=== PATIENT | female | born 1955 | race Caucasian/White ===

== ENCOUNTER → 2018-06-13 14:00 | Outpatient (CLI) | payer OTHER, SELFPAY | PROVIDERS: Family Provider Family Medicine; PCP Family Medicine | DX: Z23 Encounter for immunization (principal) | CPT/HCPCS: 90471; 90686 ==

== ENCOUNTER → 2019-02-18 10:47 | Outpatient (CLI) | payer OTHER, SELFPAY ==
[2019-02-18 11:38] LABS: Add Manual Diff / Slide Review NO; Basophils Absolute Auto 100 /uL (0-100); Basophils Percent Auto 0.7 % (0-2); Eosinophils Absolute Auto 200 /uL (0-450); Hematocrit 43.3 % (36-46); Hemoglobin 14.6 g/dL (12.0-16.0); Lymphocytes Absolute Auto 2700 /uL (1100-4500); Lymphocytes Percent Auto 27.2 % (25-40); Mean Corpuscular HGB Conc 33.7 % (30-36); Mean Corpuscular Hemoglobin 30.3 PG (26-34); Mean Corpuscular Volume 89.8 fL (80-100); Monocytes Absolute Auto 600 /uL (0-900); Monocytes Percent Auto 6.1 % (3-14); Neutrophils Absolute Auto 6300 /uL (1500-7000); Platelet Count 293 X10^3/uL (150-400); Red Blood Cell Count 4.82 X10^6/uL (4.0-5.2); Red Cell Distribution Width 13.7 % (11.6-14.8); White Blood Cell Count 9.9 X10^3/uL (4.5-11.0)
[2019-02-18 12:04] LABS: Alanine Aminotransferase 19 IU/L (9-52); Albumin 4.1 g/dL (3.5-5.0); Albumin Globulin Ratio 1.6 (1.0-2.8); Alkaline Phosphatase 50 U/L (38-126); Aspartate Aminotransferase 21 IU/L (14-36); BUN Creatinine Ratio 31.4 (6-22); Bilirubin Total 0.8 mg/dL (0.2-1.3); Bilirubin Unconjugated 0.5 mg/dL (0.0-1.1); Blood Urea Nitrogen 22 mg/dL (7-17); Calcium 9.8 mg/dL (8.4-10.2); Carbon Dioxide 29 mmol/L (22-32); Chloride 106 mmol/L (98-107); Estimated Glomerular Filt Rate > 60.0 mL/min (>60); Globulin 2.5 g/dL (1.7-4.1); Glucose 79 mg/dL (80-110); HEMOLYSIS < 15 (0-50); Potassium 4.2 mmol/L (3.4-5.1); Sodium 142 mmol/L (137-145); Total Protein 6.6 g/dL (6.3-8.2)
== END ==
PROVIDERS: Visit Provider Podiatrist
DX: B35.1 Tinea unguium (principal)
CPT/HCPCS: 36415; 80048; 80076; 85025

== ENCOUNTER → 2019-06-11 16:32 | Outpatient (CLI) | payer OTHER, SELFPAY | DX: Z23 Encounter for immunization (principal) | CPT/HCPCS: 90471; 90662 ==

== ENCOUNTER → 2020-03-04 11:06 | Outpatient (CLI) | payer OTHER, SELFPAY | PROVIDERS: Visit Provider Family Medicine | DX: R30.0 Dysuria (principal) | CPT/HCPCS: 87077; 87086; 87186 ==

== ENCOUNTER → 2020-06-11 | Outpatient (CLI) | payer OTHER, SELFPAY | PROVIDERS: Referring Provider Internal Medicine; Visit Provider Internal Medicine | DX: Z23 Encounter for immunization (principal) | CPT/HCPCS: 90471; 90662 ==

== ENCOUNTER → 2020-07-23 13:04 | Outpatient (CLI) | payer OTHER, SELFPAY | PROVIDERS: Referring Provider Family Medicine; Visit Provider Family Medicine | DX: R30.0 Dysuria (principal) | CPT/HCPCS: 87086 ==

== ENCOUNTER → 2020-07-29 08:32 | Outpatient (CLI) | payer OTHER, SELFPAY ==
[2020-07-29 09:39] LABS: COVID19 -Nasal RAPID Negative (Negative)
== END ==
PROVIDERS: PCP Family Medicine; Visit Provider Student in an Organized Health Care Education/Training Program
DX: Z11.59 Encounter for screening for other viral diseases (principal)
CPT/HCPCS: 87635

== ENCOUNTER → 2020-09-09 08:48 | Outpatient (CLI) | payer OTHER, SELFPAY ==
[2020-09-09] MEDS: COVID-19 VACC(MODERNA-1)/PF 100 MCG/0.5 ML VIAL IM (08:51)
== END ==
PROVIDERS: PCP Family Medicine; Visit Provider Internal Medicine
DX: Z23 Encounter for immunization (principal)
CPT/HCPCS: 0011A; 91301

== ENCOUNTER → 2020-10-06 08:39 | Outpatient (CLI) | payer OTHER, SELFPAY ==
[2020-10-06] MEDS: COVID-19 VACC #2, MRNA(MOD) 100 MCG/0.5 ML VIAL IM (08:43)
== END ==
PROVIDERS: PCP Family Medicine; Visit Provider Internal Medicine
DX: Z23 Encounter for immunization (principal)
CPT/HCPCS: 0012A; 91301

== ENCOUNTER → 2021-03-01 15:40 | Outpatient (CLI) | payer OTHER, SELFPAY ==
--- NOTE | 2021-03-01 16:07 | DI.CT.S_ITS ---
PROCEDURE: CT HEAD/BRAIN WO CON INDICATIONS: Cerebral aneurysm, nonruptured TECHNIQUE: Noncontrast 4.5 mm thick angled axial sections acquired from the foramen magnum to the vertex, with coronal and sagittal reformats. For radiation dose reduction, the following was used: automated exposure control, adjustment of mA and/or kV according to patient size. COMPARISON: [facility], CT, CT HEAD WITHOUT CONTRAST, 12/29/2020, 8:52. FINDINGS: Image quality: Significant artifact from previous anterior circulation aneurysmal coiling. CSF spaces: Basal cisterns are patent. No extra-axial fluid collections. The ventricles are symmetric in size and shape. Brain: No intracranial bleeds. Ill-defined low-attenuation focus within the posterior right parietal lobe measuring approximately 2.7 cm. This is new compared to prior exam. There is cerebral volume loss for age, with resultant ventricular and sulcal prominence. There are periventricular and deep white matter chronic small vessel ischemic changes. There is intracranial internal carotid artery atherosclerosis. Skull and face: Calvarium and visualized facial bones appear intact, without suspicious lesions. Sinuses: Visualized sinuses and mastoids are clear. IMPRESSION: 1. Interval aneurysm repair. 2. Low attenuation within the right parietal lobe as above. This is developed since 12/29/2020. This could be secondary to a region of infarction. However, other etiology such as infection, inflammation or less likely neoplasm cannot be excluded. Further evaluation with MRI brain with without contrast is recommended. Dictated by: Sonia Redding M.D. on 03/01/2021 at 16:48 Approved by: Sonia Redding M.D. on 03/01/2021 at 16:49
== END ==
PROVIDERS: Family Provider Family Medicine; PCP Family Medicine; Referring Provider Nurse Practitioner; Visit Provider Nurse Practitioner
DX: I67.1 Cerebral aneurysm, nonruptured (principal); I60.9 Nontraumatic subarachnoid hemorrhage, unspecified
CPT/HCPCS: 70450

== ENCOUNTER 2021-03-04 14:30 | Outpatient (RCR) | payer OTHER, SELFPAY ==
--- NOTE | 2021-02-02 17:51 | PT.OIE ---
Current Diagnoses Nontraumatic subarachnoid hemorrhage, unspecified (02/02/21) Other abnormalities of gait and mobility (02/02/21) Dizziness and giddiness (02/02/21) Visit Care Team Role Provider Type Brad Rodriguez MD Attending Provider Physician Family Provider Primary Care Provider Referring Provider Specialty: Family Practice Address: [address] [place] [address], [id number] Email: [email or web address] Physical Therapy Initial Evaluation PT-OP-A Visit Information Start: 02/02/21 12:55 Freq: Status: Active Protocol: Document 02/02/21 16:45 AW (Rec: 02/02/21 16:49 AW [id number]) Out-Patient Physical Therapy Visit Information Visit Information Visit Type Initial Evaluation Visit Note Pt arrived with her spouse, Everett, who was present throughout this evaluation. 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 She spent three weeks in the ICU and was intubated ~ 1 week during that time. She discharged two weeks ago and has had no therapy. She reports short term memory loss, decreased strength, impaired balance, fatigue, and headaches. She is still off work but plans to return. Prior Treatments and Tests [facility] three weeks in January as noted above Future Testing and Treatments Planned Pt will have follow up head CT at late February. She is scheduled for neuropsych consult with Dr. Meneses later this week. Treatment Goals Patient/Caregiver Goals Improve strength, balance, overall energy level. 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 PT-OP-C Subjective Start: 02/02/21 12:55 Freq: Status: Active Protocol: Document 02/02/21 16:45 AW (Rec: 02/02/21 17:36 AW [email or web address]) OP-PT Subjective Patient Comments Patient Comments My balance just feels a little off since I got home. OP-PT Pain Assessment Pain Assessment Grid Paper Pain Assessment Grid Completed Yes: Scanned to EMR. Pt reports headaches usually not more than 1/10 pain PT-OP-D Balance Start: 02/02/21 12:55 Freq: Status: Active Protocol: Document 02/02/21 16:45 AW (Rec: 02/02/21 17:36 AW [email or web address]) OP-PT Balance Assessment Sitting Balance Static Sitting Balance Ability Normal Dynamic Sitting Balance Ability Normal Standing Balance Static Standing Balance Ability Good Dynamic Standing Balance Ability Good Device Used no AD Balance Tests mCTSIB mCTSIB Position 1 30 mCTSIB Position 2 30 mCTSIB Position 3 30 mCTSIB Position 4 5, 8, 20 Single Limb Standing Single Limb- Right 5 sec Single Limb- Left >15 sec Dumont Fall Scale Copyright Permission PT-OP-G Mobility & Gait Start: 02/02/21 12:55 Freq: Status: Active Protocol: Document 02/02/21 16:45 AW (Rec: 02/02/21 17:36 AW [email or web address]) OP Gait Assessment Gait Gait Assistance Required: Independent Assistive Devices Assistive Device None Gait Deviations General Gait Pattern Within Normal Limits Factors Limiting Gait Function Factors Limiting Gait Function Poor Balance PT-OP-H Neuro Start: 02/02/21 12:55 Freq: Status: Active Protocol: Document 02/02/21 16:45 AW (Rec: 02/02/21 17:36 AW [email or web address]) Sensation Evaluation Gross Sensation Gross Sensation WNL Coordination Evaluation Comments Coordination Comments [id number], rapid pronation/supination, foot tap all WNL Deep Tendon Reflex & Clonus Assessment Deep Tendon Reflex Bilateral Achilles Deep Tendon Reflex 2+ Normal Bilateral Patellar Deep Tendon Reflex 1+ Diminished Bilateral Bicep Deep Tendon Reflex 2+ Normal PT-OP-K Range of Motion Start: 02/02/21 12:55 Freq: Status: Active Protocol: Document 02/02/21 16:45 AW (Rec: 02/02/21 17:36 AW [email or web address]) Hip Goniometric Range of Motion Hip ROM Limitations Comments All B LE ROM WNL PT-OP-M Strength Start: 02/02/21 12:55 Freq: Status: Active Protocol: Document 02/02/21 16:45 AW (Rec: 02/02/21 17:36 AW [email or web address]) Hip Strength Hip Manual Muscle Testing bilateral Flexion (L2) 4+ Good+ Extension (S1) 4+ Good+ Abduction 4+ Good+ Adduction 4+ Good+ External Rotation 4+ Good+ Internal Rotation 4+ Good+ Knee Strength Knee Manual Muscle Testing bilateral Flexion (S2) 4 Good Extension (L3) 4+ Good+ Ankle/Foot Strength Ankle and Foot Manual Muscle Testing bilateral Dorsiflexion (L4) 4+ Good+ Inversion 4+ Good+ Eversion (S1) 4 Good Comments PF tested in standing with pt able to perform single leg heel raised x 12 each side but with poor stability PT-OP-Q Treatments Start: 02/02/21 12:55 Freq: Status: Active Protocol: Document 02/02/21 16:45 AW (Rec: 02/02/21 17:51 AW [email or web address]) Therapeutic Exercises Standing Exercises heel raises Standing Exercise Name heel raises Side bilateral Equipment Used 4 step Reps/Minutes 15 x 3 Comments cued ankle stability, control of inversion; HEP Therapeutic Activity Therapeutic Activity FGA Name FGA Reps/Minutes 10 min Comments Score 23/30. See copy in EMR. Neuro Re-Education Treatment Balance Activities NBOS Details NBOS Surface level Reps/Duration 5 min Comments with head turns and nods; HEP Lymphedema Treatment Other Other Educated pt on evaluation findings and plan of care. Pt was agreeable. Spent time discussing balance systems integration with pt able to teach back with rationale for balance treatment. PT-OP-T Assessment and Plan Start: 02/02/21 12:55 Freq: Status: Active Protocol: Document 02/02/21 16:45 AW (Rec: 02/02/21 17:51 AW [email or web address]) Physical Therapy Assessment Rehab Potential Rehabilitation Potential Good Evaluation Complexity Number of Personal Factors/Comorbidities 1-2 Number of Body Systems Impaired 1-2 Clinical Presentation at Evaluation Stable Impairments Impairments Activity Tolerance,Balance, Gait,Pain,Strength Other Concerns Fall Risk moderate Barriers to Rehabilitation - Pt tends to work non-stop and requries cues/reminders to take breaks. - Short term memory loss. Goals Three Impairment strength Jail Goal (LTG) Pt will improve BLE strength to 4+/5 or greater in all major muscle groups to support safe mobility LTG Duration 2 months - 04/04/21 Two Impairment dynamic balance Short Term Goal (STG) Pt will improve single leg stance bilaterally to 20 seconds with good stability for improved gait quality and safety. STG Duration 4 weeks - 03/02/21 Night Time Nanny Goal (LTG) Pt will improve FGA score from 23/30 to 27/30 to demonstrate reduction in falls risk and alignment with norms for age- matched peers. LTG Duration 2 months - 04/04/21 One Impairment lacks appropriate HEP Short Term Goal (STG) Pt will be independent with HEP to support therapy services provided in clinic. STG Duration 4 weeks - 03/02/21 Assessment Summary Assessment Mary Kay is a 65 yo woman seen in outpatient physical therapy with recent cerebral aneurysm repair. She was hospitalized for several weeks and intubated for part of that time. 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 Pt scored 23/30 on Functional Gait Assessment which is lower than norms for her age matched peers (Walker 2007). Occulomotor and vestibular exam was grossly normal. Pt would benefit from skilled therapy aimed at improving her lower extremity strength and dynamic balance for safe return to work and to improve her ability to participate in recreational activities such as gardening. Physical Therapy Plan Frequency and Duration Frequency of Treatment 2x/Week Duration of Treatment 2 months Plan of Care Start Date 02/02/21 Plan of Care End Date 04/04/21 Therapeutic Interventions Therapeutic Interventions Balance Training,Gait Training ,Home Exercise Program, Neuromuscular Re-education, Orthotic/Prosthetic Management ,Patient/Caregiver Education, Self-Care/Home Management, Sensory Integration, Therapeutic Activities, Therapeutic Exercises Next Visit Focus/Plan Next Note Type Treatment Note Next Visit Plan Assess response to standing balance exercises. Progress as appropriate and address proximal strengthening.
--- NOTE | 2021-02-02 17:52 | PT.OPPOC ---
Physical, Occupational & Speech Therapy At [facility] Current Diagnoses Nontraumatic subarachnoid hemorrhage, unspecified (02/02/21) Other abnormalities of gait and mobility (02/02/21) Dizziness and giddiness (02/02/21) Visit Care Team Role Provider Type Brad Rodriguez MD Attending Provider Physician Family Provider Primary Care Provider Referring Provider Specialty: Family Practice Address: [address] [place] [address], [id number] Email: [email or web address] Plan Of Care PT-OP-T Assessment and Plan Start: 02/02/21 12:55 Freq: Status: Active Protocol: Document 02/02/21 16:45 AW (Rec: 02/02/21 17:51 AW [email or web address]) Physical Therapy Assessment Rehab Potential Rehabilitation Potential Good Evaluation Complexity Number of Personal Factors/Comorbidities 1-2 Number of Body Systems Impaired 1-2 Clinical Presentation at Evaluation Stable Impairments Impairments Activity Tolerance,Balance, Gait,Pain,Strength Other Concerns Fall Risk moderate Barriers to Rehabilitation - Pt tends to work non-stop and requries cues/reminders to take breaks. - Short term memory loss. Goals Three Impairment strength Prison Goal (LTG) Pt will improve BLE strength to 4+/5 or greater in all major muscle groups to support safe mobility LTG Duration 2 months - 04/04/21 Two Impairment dynamic balance Short Term Goal (STG) Pt will improve single leg stance bilaterally to 20 seconds with good stability for improved gait quality and safety. STG Duration 4 weeks - 03/02/21 Hospital Mortician Goal (LTG) Pt will improve FGA score from 23/30 to 27/30 to demonstrate reduction in falls risk and alignment with norms for age- matched peers. LTG Duration 2 months - 04/04/21 One Impairment lacks appropriate HEP Short Term Goal (STG) Pt will be independent with HEP to support therapy services provided in clinic. STG Duration 4 weeks - 03/02/21 Assessment Summary Assessment Mary Kay is a 65 yo woman seen in outpatient physical therapy with recent cerebral aneurysm repair. She was hospitalized for several weeks and intubated for part of that time. 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 Pt scored 23/30 on Functional Gait Assessment which is lower than norms for her age matched peers (Lolyd 2007). Occulomotor and vestibular exam was grossly normal. Pt would benefit from skilled therapy aimed at improving her lower extremity strength and dynamic balance for safe return to work and to improve her ability to participate in recreational activities such as gardening. Physical Therapy Plan Frequency and Duration Frequency of Treatment 2x/Week Duration of Treatment 2 months Plan of Care Start Date 02/02/21 Plan of Care End Date 04/04/21 Therapeutic Interventions Therapeutic Interventions Balance Training,Gait Training ,Home Exercise Program, Neuromuscular Re-education, Orthotic/Prosthetic Management ,Patient/Caregiver Education, Self-Care/Home Management, Sensory Integration, Therapeutic Activities, Therapeutic Exercises Next Visit Focus/Plan Next Note Type Treatment Note Next Visit Plan Assess response to standing balance exercises. Progress as appropriate and address proximal strengthening. Plan of Care Dates Plan of Care Start Date 02/02/21 Plan of Care End Date 04/04/21 Electronically Signed by: Laura Diamond PT 02/02/21 [id number] Please Sign and Return: I have reviewed this Plan of Care and certify that the skilled therapy services above are required to meet the patient?s needs. Physician Signature Date Printed Name and Credentials Clinical Instructor Signature Printed Name and Credentials
--- NOTE | 2021-02-09 17:00 | PT.OTN ---
Addendum entered and electronically signed by Laura Diamond PT 02/09/21 17:07: Assessed gaze stabilization and pt was able to maintain focus at 120 bpm (2 Hz). Original Note: Current Diagnoses Nontraumatic subarachnoid hemorrhage, unspecified (02/09/21) Other abnormalities of gait and mobility (02/09/21) Dizziness and giddiness (02/09/21) Physical Therapy Treatment Note PT-OP-A Visit Information Start: 02/02/21 12:55 Freq: Status: Active Protocol: Document 02/09/21 16:45 AW (Rec: 02/09/21 16:59 AW [id number]) Out-Patient Physical Therapy Visit Information Visit Information Visit Type Treatment Note Visit Note Spouse, Everett, attended with pt Visit Start Time 16:04 Visit Stop Time 16:45 Total Visit Minutes 41 Visit Number 2 0 Number of [employer] Visits 0 Evaluation Information Evaluation Date 02/02/21 PT-OP-B Current Condition Start: 02/02/21 12:55 Freq: Status: Active Protocol: Document 02/02/21 16:45 AW (Rec: 02/02/21 16:49 AW [id number]) Current Condition History of Current Condition Onset Date 12/29/20 Current Complaints balance is off History of Current Condition 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 She spent three weeks in the ICU and was intubated ~ 1 week during that time. She discharged two weeks ago and has had no therapy. She reports short term memory loss, decreased strength, impaired balance, fatigue, and headaches. She is still off work but plans to return. Prior Treatments and Tests [facility] [place] as noted above Future Testing and Treatments Planned Pt will have follow up head CT at late February. She is scheduled for neuropsych consult with Dr. Meneses later this week. Treatment Goals Patient/Caregiver Goals Improve strength, balance, overall energy level. 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 PT-OP-C Subjective Start: 02/02/21 12:55 Freq: Status: Active Protocol: Document 02/09/21 16:45 AW (Rec: 02/09/21 16:59 AW [id number]) OP-PT Subjective Patient Comments Patient Comments Exercise pics would be helpful because of my short term memory loss. PT-OP-D Balance Start: 02/02/21 12:55 Freq: Status: Active Protocol: Document 02/02/21 16:45 AW (Rec: 02/02/21 17:36 AW [email or web address]) OP-PT Balance Assessment Sitting Balance Static Sitting Balance Ability Normal Dynamic Sitting Balance Ability Normal Standing Balance Static Standing Balance Ability Good Dynamic Standing Balance Ability Good Device Used no AD Balance Tests mCTSIB mCTSIB Position 1 30 mCTSIB Position 2 30 mCTSIB Position 3 30 mCTSIB Position 4 5, 8, 20 Single Limb Standing Single Limb- Right 5 sec Single Limb- Left >15 sec Dumont Fall Scale Copyright Permission PT-OP-G Mobility & Gait Start: 02/02/21 12:55 Freq: Status: Active Protocol: Document 02/02/21 16:45 AW (Rec: 02/02/21 17:36 AW [email or web address]) OP Gait Assessment Gait Gait Assistance Required: Independent Assistive Devices Assistive Device None Gait Deviations General Gait Pattern Within Normal Limits Factors Limiting Gait Function Factors Limiting Gait Function Poor Balance PT-OP-H Neuro Start: 02/02/21 12:55 Freq: Status: Active Protocol: Document 02/02/21 16:45 AW (Rec: 02/02/21 17:36 AW [email or web address]) Sensation Evaluation Gross Sensation Gross Sensation WNL Coordination Evaluation Comments Coordination Comments [id number], rapid pronation/supination, foot tap all WNL Deep Tendon Reflex & Clonus Assessment Deep Tendon Reflex Bilateral Achilles Deep Tendon Reflex 2+ Normal Bilateral Patellar Deep Tendon Reflex 1+ Diminished Bilateral Bicep Deep Tendon Reflex 2+ Normal PT-OP-K Range of Motion Start: 02/02/21 12:55 Freq: Status: Active Protocol: Document 02/02/21 16:45 AW (Rec: 02/02/21 17:36 AW [email or web address]) Hip Goniometric Range of Motion Hip ROM Limitations Comments All B LE ROM WNL PT-OP-M Strength Start: 02/02/21 12:55 Freq: Status: Active Protocol: Document 02/02/21 16:45 AW (Rec: 02/02/21 17:36 AW [email or web address]) Hip Strength Hip Manual Muscle Testing bilateral Flexion (L2) 4+ Good+ Extension (S1) 4+ Good+ Abduction 4+ Good+ Adduction 4+ Good+ External Rotation 4+ Good+ Internal Rotation 4+ Good+ Knee Strength Knee Manual Muscle Testing bilateral Flexion (S2) 4 Good Extension (L3) 4+ Good+ Ankle/Foot Strength Ankle and Foot Manual Muscle Testing bilateral Dorsiflexion (L4) 4+ Good+ Inversion 4+ Good+ Eversion (S1) 4 Good Comments PF tested in standing with pt able to perform single leg heel raised x 12 each side but with poor stability PT-OP-Q Treatments Start: 02/02/21 12:55 Freq: Status: Active Protocol: Document 02/09/21 16:45 AW (Rec: 02/09/21 16:59 AW [id number]) Gym Equipment Shuttle Balance 1 Details WBOS, NBOS, EO, EC, head turns and nods Reps/Duration 8 min Comments blue clips Therapeutic Exercises Standing Exercises anti rotation press Standing Exercise Name antirotation press Side bilateral Resistance level 1 Equipment Used TB Comments simple press, press with GH flexion, press with single leg stance step up Standing Exercise Name step up Side bilateral Equipment Used 4 step, 8 step Reps/Minutes 8 x 2 Comments cued weight acceptance, glute drive mini squat/hip hinge Standing Exercise Name mini squat/hip hinge Reps/Minutes 8 x 2 Comments focus on neutral spine, glute engagement wall sit Standing Exercise Name wall sit Reps/Minutes 10 SH x 5 Comments with feet away from wall for proper knee alignment heel raises Standing Exercise Name heel raises Side bilateral Equipment Used 6 step Reps/Minutes 15 x 3 Comments cued slow controlled movement Other Exercises pelvic tilt Other Exercise Name pelvic tilt Equipment Used 65 cm ball Reps/Minutes 4 min Comments for pelvic tilt awareness Neuro Re-Education Treatment Balance Activities NBOS Details NBOS Surface level Reps/Duration 5 min Comments with head turns and nods; EO and EC requiring close SBA with EC PT-OP-T Assessment and Plan Start: 02/02/21 12:55 Freq: Status: Active Protocol: Document 02/09/21 16:45 AW (Rec: 02/09/21 17:03 AW [id number]) Physical Therapy Assessment Other Concerns Fall Risk moderate Barriers to Rehabilitation - Pt tends to work non-stop and requries cues/reminders to take breaks. - Short term memory loss. Goals Three Impairment strength Long-Term Goal (LTG) Pt will improve BLE strength to 4+/5 or greater in all major muscle groups to support safe mobility LTG Duration 2 months - 04/04/21 Two Impairment dynamic balance Short Term Goal (STG) Pt will improve single leg stance bilaterally to 20 seconds with good stability for improved gait quality and safety. STG Duration 4 weeks - 03/02/21 Long-Term Goal (LTG) Pt will improve FGA score from 30 to 27 to demonstrate reduction in falls risk and alignment with norms for age- matched peers. LTG Duration 2 months - 04/04/21 One Impairment lacks appropriate HEP Short Term Goal (STG) Pt will be independent with HEP to support therapy services provided in clinic. STG Duration 4 weeks - 03/02/21 Assessment Summary Assessment Pt tends to stand with increased posterior tilt which may be affecting her balance. Progressed standing balance work and BLE strengthening which pt tolerated well. She is appreciative of handouts to assist with retention and carryover for HEP. Physical Therapy Plan Frequency and Duration Frequency of Treatment 2x/Week Duration of Treatment 2 months Plan of Care Start Date 02/02/21 Plan of Care End Date 04/04/21 Therapeutic Interventions Therapeutic Interventions Balance Training,Gait Training ,Home Exercise Program, Neuromuscular Re-education, Orthotic/Prosthetic Management ,Patient/Caregiver Education, Self-Care/Home Management, Sensory Integration, Therapeutic Activities, Therapeutic Exercises Next Visit Focus/Plan Next Note Type Treatment Note Next Visit Plan Assess response to standing balance exercises. Progress as appropriate and address proximal strengthening.
--- NOTE | 2021-02-12 15:41 | PT.OTN ---
Current Diagnoses Nontraumatic subarachnoid hemorrhage, unspecified (02/12/21) Other abnormalities of gait and mobility (02/12/21) Dizziness and giddiness (02/12/21) Physical Therapy Treatment Note PT-OP-A Visit Information Start: 02/02/21 12:55 Freq: Status: Active Protocol: Document 02/12/21 13:37 LRN (Rec: 02/12/21 14:22 LRN [id number]) Out-Patient Physical Therapy Visit Information Visit Information Visit Type Treatment Note Visit Start Time 13:37 Visit Stop Time 14:20 Total Visit Minutes 43 Visit Number 3 Evaluation Information Evaluation Date 02/02/21 PT-OP-B Current Condition Start: 02/02/21 12:55 Freq: Status: Active Protocol: Document 02/02/21 16:45 AW (Rec: 02/02/21 16:49 AW [id number]) Current Condition History of Current Condition Onset Date 12/29/20 Current Complaints balance is off History of Current Condition 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 She spent three weeks in the ICU and was intubated ~ 1 week during that time. She discharged two weeks ago and has had no therapy. She reports short term memory loss, decreased strength, impaired balance, fatigue, and headaches. She is still off work but plans to return. Prior Treatments and Tests [place] three weeks in January as noted above Future Testing and Treatments Planned Pt will have follow up head CT at late February. She is scheduled for neuropsych consult with Dr. Meneses later this week. Treatment Goals Patient/Caregiver Goals Improve strength, balance, overall energy level. 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 PT-OP-C Subjective Start: 02/02/21 12:55 Freq: Status: Active Protocol: Document 02/12/21 13:37 LRN (Rec: 02/12/21 14:22 LRN [id number]) OP-PT Subjective Patient Comments Patient Comments Aneurysm of brain, repaired at [facility], in ICU a week. Came home 2 weeks ago. Balance is improving every day . Legs are weak. States balance ex's are good, doesn't feel tippy. Not understanding purpose of squat exercise. PT-OP-D Balance Start: 02/02/21 12:55 Freq: Status: Active Protocol: Document 02/02/21 16:45 AW (Rec: 02/02/21 17:36 AW [email or web address]) OP-PT Balance Assessment Sitting Balance Static Sitting Balance Ability Normal Dynamic Sitting Balance Ability Normal Standing Balance Static Standing Balance Ability Good Dynamic Standing Balance Ability Good Device Used no AD Balance Tests mCTSIB mCTSIB Position 1 30 mCTSIB Position 2 30 mCTSIB Position 3 30 mCTSIB Position 4 5, 8, 20 Single Limb Standing Single Limb- Right 5 sec Single Limb- Left >15 sec Dumont Fall Scale Copyright Permission PT-OP-G Mobility & Gait Start: 02/02/21 12:55 Freq: Status: Active Protocol: Document 02/02/21 16:45 AW (Rec: 02/02/21 17:36 AW [email or web address]) OP Gait Assessment Gait Gait Assistance Required: Independent Assistive Devices Assistive Device None Gait Deviations General Gait Pattern Within Normal Limits Factors Limiting Gait Function Factors Limiting Gait Function Poor Balance PT-OP-H Neuro Start: 02/02/21 12:55 Freq: Status: Active Protocol: Document 02/02/21 16:45 AW (Rec: 02/02/21 17:36 AW [email or web address]) Sensation Evaluation Gross Sensation Gross Sensation WNL Coordination Evaluation Comments Coordination Comments [id number], rapid pronation/supination, foot tap all WNL Deep Tendon Reflex & Clonus Assessment Deep Tendon Reflex Bilateral Achilles Deep Tendon Reflex 2+ Normal Bilateral Patellar Deep Tendon Reflex 1+ Diminished Bilateral Bicep Deep Tendon Reflex 2+ Normal PT-OP-K Range of Motion Start: 02/02/21 12:55 Freq: Status: Active Protocol: Document 02/02/21 16:45 AW (Rec: 02/02/21 17:36 AW [email or web address]) Hip Goniometric Range of Motion Hip ROM Limitations Comments All B LE ROM WNL PT-OP-M Strength Start: 02/02/21 12:55 Freq: Status: Active Protocol: Document 02/02/21 16:45 AW (Rec: 02/02/21 17:36 AW [email or web address]) Hip Strength Hip Manual Muscle Testing bilateral Flexion (L2) 4+ Good+ Extension (S1) 4+ Good+ Abduction 4+ Good+ Adduction 4+ Good+ External Rotation 4+ Good+ Internal Rotation 4+ Good+ Knee Strength Knee Manual Muscle Testing bilateral Flexion (S2) 4 Good Extension (L3) 4+ Good+ Ankle/Foot Strength Ankle and Foot Manual Muscle Testing bilateral Dorsiflexion (L4) 4+ Good+ Inversion 4+ Good+ Eversion (S1) 4 Good Comments PF tested in standing with pt able to perform single leg heel raised x 12 each side but with poor stability PT-OP-Q Treatments Start: 02/02/21 12:55 Freq: Status: Active Protocol: Document 02/12/21 13:37 LRN (Rec: 02/12/21 14:22 LRN [id number]) Therapeutic Exercises Sitting Exercises Anterior pelvic tilt Sitting Exercise Name Anterior pelvic tilts from neutral on ball and sitting Reps/Minutes 5' Standing Exercises mini squat/hip hinge Standing Exercise Name Mini squat/hip hinge training with T-Ball/mirror Equipment Used Red T-Ball Reps/Minutes 19' Comments Much phy cuing, and verbal/ visual cuing needed. wall sit Standing Exercise Name wall sit with anterior pelvic tilt Reps/Minutes 30 x 3 Comments with feet away from wall for proper knee alignment Neuro Re-Education Treatment Balance Activities [place] Details Head up/down, side to side Reps/Duration 3' Self-Care/Home Management Treatment Education Patient Education Posture Other Education Posture training x 10'. Educated pt in spinal mobility and posturing with spinal model. Discussed standing posture training using 1 wood block and discussed [employer] for posture. PT-OP-T Assessment and Plan Start: 02/02/21 12:55 Freq: Status: Active Protocol: Document 02/12/21 13:37 LRN (Rec: 02/12/21 14:22 LRN [id number]) Physical Therapy Assessment Goals Three Impairment strength Mcfp Goal (LTG) Pt will improve BLE strength to 4+/5 or greater in all major muscle groups to support safe mobility LTG Duration 2 months - 04/04/21 Two Impairment dynamic balance Short Term Goal (STG) Pt will improve single leg stance bilaterally to 20 seconds with good stability for improved gait quality and safety. STG Duration 4 weeks - 03/02/21 Mcfp Goal (LTG) Pt will improve FGA score from 23/30 to 27/30 to demonstrate reduction in falls risk and alignment with norms for age- matched peers. LTG Duration 2 months - 04/04/21 One Impairment lacks appropriate HEP Short Term Goal (STG) Pt will be independent with HEP to support therapy services provided in clinic. STG Duration 4 weeks - 03/02/21 Assessment Summary Assessment Improved standing posture after training with pt able to demonstrate correction of posture (anterior pelvic tilt) when verbally cued. Pt able to identify improved posturing after training with forefoot elevated (reverse heel positioning). Pt strength appears improved with ability to wall squat longer. Much more training is needed for hip hinging with squat. Physical Therapy Plan Frequency and Duration Frequency of Treatment 2x/Week Duration of Treatment 2 months Plan of Care Start Date 02/02/21 Plan of Care End Date 04/04/21 Next Visit Focus/Plan Next Note Type Treatment Note Next Visit Plan Review squatting with T-Ball and further train for hip hinging to improve posture and function. Progress as appropriate and address proximal strengthening.
--- NOTE | 2021-02-16 12:49 | PT-IP ANOTE ---
Pt cx same day due to illness.
--- NOTE | 2021-03-04 15:26 | PT.OTN ---
Current Diagnoses Nontraumatic subarachnoid hemorrhage, unspecified (03/04/21) Other abnormalities of gait and mobility (03/04/21) Dizziness and giddiness (03/04/21) Physical Therapy Treatment Note PT-OP-A Visit Information Start: 02/02/21 12:55 Freq: Status: Active Protocol: Document 03/04/21 14:39 LR (Rec: 03/04/21 15:26 LR [id number]) Out-Patient Physical Therapy Visit Information Visit Information Visit Type Treatment Note Visit Start Time 14:33 Visit Stop Time 15:14 Total Visit Minutes 41 Visit Number 4 Number of BODY FORMER Visits 0 PT-OP-B Current Condition Start: 02/02/21 12:55 Freq: Status: Active Protocol: Document 02/02/21 16:45 AW (Rec: 02/02/21 16:49 AW [id number]) Current Condition History of Current Condition Onset Date 12/29/20 Current Complaints balance is off History of Current Condition 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 She spent three weeks in the ICU and was intubated ~ 1 week during that time. She discharged two weeks ago and has had no therapy. She reports short term memory loss, decreased strength, impaired balance, fatigue, and headaches. She is still off work but plans to return. Prior Treatments and Tests [facility] three weeks in January as noted above Future Testing and Treatments Planned Pt will have follow up head CT at late February. She is scheduled for neuropsych consult with Dr. Meneses later this week. Treatment Goals Patient/Caregiver Goals Improve strength, balance, overall energy level. 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 PT-OP-C Subjective Start: 02/02/21 12:55 Freq: Status: Active Protocol: Document 03/04/21 14:39 LR (Rec: 03/04/21 15:26 [facility] [id number]) OP-PT Subjective Patient Comments Patient Comments Pt reports doing her exercises . Walking 2x/day. She has been on the trails and the beach. Reports she feels like her balance is a lot better. She used to do yoga but doesn't d/ t head down makes her ALEGRE bad. Pt really feels like she needs to work posture and improve leg strength. Patient Reported Progress Improving PT-OP-D Balance Start: 02/02/21 12:55 Freq: Status: Active Protocol: Document 02/02/21 16:45 AW (Rec: 02/02/21 17:36 AW [email or web address]) OP-PT Balance Assessment Sitting Balance Static Sitting Balance Ability Normal Dynamic Sitting Balance Ability Normal Standing Balance Static Standing Balance Ability Good Dynamic Standing Balance Ability Good Device Used no AD Balance Tests mCTSIB mCTSIB Position 1 30 mCTSIB Position 2 30 mCTSIB Position 3 30 mCTSIB Position 4 5, 8, 20 Single Limb Standing Single Limb- Right 5 sec Single Limb- Left >15 sec Dumont Fall Scale Copyright Permission PT-OP-G Mobility & Gait Start: 02/02/21 12:55 Freq: Status: Active Protocol: Document 02/02/21 16:45 AW (Rec: 02/02/21 17:36 AW [email or web address]) OP Gait Assessment Gait Gait Assistance Required: Independent Assistive Devices Assistive Device None Gait Deviations General Gait Pattern Within Normal Limits Factors Limiting Gait Function Factors Limiting Gait Function Poor Balance PT-OP-H Neuro Start: 02/02/21 12:55 Freq: Status: Active Protocol: Document 02/02/21 16:45 AW (Rec: 02/02/21 17:36 AW [email or web address]) Sensation Evaluation Gross Sensation Gross Sensation WNL Coordination Evaluation Comments Coordination Comments [id number], rapid pronation/supination, foot tap all WNL Deep Tendon Reflex & Clonus Assessment Deep Tendon Reflex Bilateral Achilles Deep Tendon Reflex 2+ Normal Bilateral Patellar Deep Tendon Reflex 1+ Diminished Bilateral Bicep Deep Tendon Reflex 2+ Normal PT-OP-K Range of Motion Start: 02/02/21 12:55 Freq: Status: Active Protocol: Document 02/02/21 16:45 AW (Rec: 02/02/21 17:36 AW [email or web address]) Hip Goniometric Range of Motion Hip ROM Limitations Comments All B LE ROM WNL PT-OP-M Strength Start: 02/02/21 12:55 Freq: Status: Active Protocol: Document 02/02/21 16:45 AW (Rec: 02/02/21 17:36 AW [email or web address]) Hip Strength Hip Manual Muscle Testing bilateral Flexion (L2) 4+ Good+ Extension (S1) 4+ Good+ Abduction 4+ Good+ Adduction 4+ Good+ External Rotation 4+ Good+ Internal Rotation 4+ Good+ Knee Strength Knee Manual Muscle Testing bilateral Flexion (S2) 4 Good Extension (L3) 4+ Good+ Ankle/Foot Strength Ankle and Foot Manual Muscle Testing bilateral Dorsiflexion (L4) 4+ Good+ Inversion 4+ Good+ Eversion (S1) 4 Good Comments PF tested in standing with pt able to perform single leg heel raised x 12 each side but with poor stability PT-OP-Q Treatments Start: 02/02/21 12:55 Freq: Status: Active Protocol: Document 03/04/21 14:39 [facility] (Rec: 03/04/21 15:26 [facility] [id number]) Cardio Equipment Recumbent Elliptical ([employer]) Duration (Minutes) 7 Resistance 6 Seat Position 7 Therapeutic Exercises Standing Exercises wall posture Standing Exercise Name w/90/90 ER HAB Side bilateral Reps/Minutes 15 sideastep Standing Exercise Name resisted Side bilateral Equipment Used yellow tband Reps/Minutes 20ft squat Standing Exercise Name over chair Side bilateral lunge Side bilateral Reps/Minutes 12 Neuro Re-Education Treatment Balance Activities tandem Details stance trials B SLS Details SLS B Self-Care/Home Management Treatment Education Other Education standing posture training & edu on how to stack ribcage over pelvis, edu on HEP and importance of safety during it . PT-OP-T Assessment and Plan Start: 02/02/21 12:55 Freq: Status: Active Protocol: Document 03/04/21 14:39 [facility] (Rec: 03/04/21 15:26 [facility] [id number]) Physical Therapy Assessment Goals Three Impairment strength Cosmetics Presser Goal (LTG) Pt will improve BLE strength to 4+/5 or greater in all major muscle groups to support safe mobility LTG Duration 2 months - 04/04/21 Two Impairment dynamic balance Short Term Goal (STG) Pt will improve single leg stance bilaterally to 20 seconds with good stability for improved gait quality and safety. STG Duration 4 weeks - 03/02/21 Cosmetics Presser Goal (LTG) Pt will improve FGA score from 23/30 to 27/30 to demonstrate reduction in falls risk and alignment with norms for age- matched peers. LTG Duration 2 months - 04/04/21 One Impairment lacks appropriate HEP Short Term Goal (STG) Pt will be independent with HEP to support therapy services provided in clinic. STG Duration 4 weeks - 03/02/21 Assessment Summary Assessment Pt did well with progressed exercises and was able to tolreate higher level balance and strengthening today. She had good carryover with posture but still required cueing for positioning. Physical Therapy Plan Frequency and Duration Frequency of Treatment 2x/Week Duration of Treatment 2 months Plan of Care Start Date 02/02/21 Plan of Care End Date 04/04/21 Next Visit Focus/Plan Next Note Type Treatment Note Next Visit Plan review exercises & progress balance and strengthening along w/work on posture
--- NOTE | 2021-04-20 13:43 | PT.OPDS ---
Current Diagnoses Nontraumatic subarachnoid hemorrhage, unspecified (03/04/21) Other abnormalities of gait and mobility (03/04/21) Dizziness and giddiness (03/04/21) Visit Care Team Role Provider Type Brad Rodriguez MD Attending Provider Physician Family Provider Primary Care Provider Referring Provider Specialty: Family Practice Address: [address] [place] [address], [id number] Email: [email or web address] Visit Number Visit Number 4 Discharge Summary PT-OP-B Current Condition Start: 02/02/21 12:55 Freq: Status: Active Protocol: Document 02/02/21 16:45 AW (Rec: 02/02/21 16:49 AW [id number]) Current Condition History of Current Condition Onset Date 12/29/20 Current Complaints balance is off History of Current Condition 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 She spent three weeks in the ICU and was intubated ~ 1 week during that time. She discharged two weeks ago and has had no therapy. She reports short term memory loss, decreased strength, impaired balance, fatigue, and headaches. She is still off work but plans to return. Prior Treatments and Tests [facility] three weeks in January as noted above Future Testing and Treatments Planned Pt will have follow up head CT at late February. She is scheduled for neuropsych consult with Dr. Meneses later this week. Treatment Goals Patient/Caregiver Goals Improve strength, balance, overall energy level. 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 PT-OP-C Subjective Start: 02/02/21 12:55 Freq: Status: Active Protocol: Document 03/04/21 14:39 LR (Rec: 03/04/21 15:26 [facility] [id number]) OP-PT Subjective Patient Comments Patient Comments Pt reports doing her exercises . Walking 2x/day. She has been on the trails and the beach. Reports she feels like her balance is a lot better. She used to do yoga but doesn't d/ t head down makes her ALEGRE bad. Pt really feels like she needs to work posture and improve leg strength. Patient Reported Progress Improving PT-OP-D Balance Start: 02/02/21 12:55 Freq: Status: Active Protocol: Document 02/02/21 16:45 AW (Rec: 02/02/21 17:36 AW [email or web address]) OP-PT Balance Assessment Sitting Balance Static Sitting Balance Ability Normal Dynamic Sitting Balance Ability Normal Standing Balance Static Standing Balance Ability Good Dynamic Standing Balance Ability Good Device Used no AD Balance Tests mCTSIB mCTSIB Position 1 30 mCTSIB Position 2 30 mCTSIB Position 3 30 mCTSIB Position 4 5, 8, 20 Single Limb Standing Single Limb- Right 5 sec Single Limb- Left >15 sec Dumont Fall Scale Copyright Permission PT-OP-G Mobility & Gait Start: 02/02/21 12:55 Freq: Status: Active Protocol: Document 02/02/21 16:45 AW (Rec: 02/02/21 17:36 AW [email or web address]) OP Gait Assessment Gait Gait Assistance Required: Independent Assistive Devices Assistive Device None Gait Deviations General Gait Pattern Within Normal Limits Factors Limiting Gait Function Factors Limiting Gait Function Poor Balance PT-OP-H Neuro Start: 02/02/21 12:55 Freq: Status: Active Protocol: Document 02/02/21 16:45 AW (Rec: 02/02/21 17:36 AW [email or web address]) Sensation Evaluation Gross Sensation Gross Sensation WNL Coordination Evaluation Comments Coordination Comments Irqnur-wj-udkh, rapid pronation/supination, foot tap all WNL Deep Tendon Reflex & Clonus Assessment Deep Tendon Reflex Bilateral Achilles Deep Tendon Reflex 2+ Normal Bilateral Patellar Deep Tendon Reflex 1+ Diminished Bilateral Bicep Deep Tendon Reflex 2+ Normal PT-OP-K Range of Motion Start: 02/02/21 12:55 Freq: Status: Active Protocol: Document 02/02/21 16:45 AW (Rec: 02/02/21 17:36 AW [email or web address]) Hip Goniometric Range of Motion Hip ROM Limitations Comments All B LE ROM WNL PT-OP-M Strength Start: 06/01/21 12:55 Freq: Status: Active Protocol: Document 02/02/21 16:45 AW (Rec: 02/02/21 17:36 AW [email or web address]) Hip Strength Hip Manual Muscle Testing bilateral Flexion (L2) 4+ Good+ Extension (S1) 4+ Good+ Abduction 4+ Good+ Adduction 4+ Good+ External Rotation 4+ Good+ Internal Rotation 4+ Good+ Knee Strength Knee Manual Muscle Testing bilateral Flexion (S2) 4 Good Extension (L3) 4+ Good+ Ankle/Foot Strength Ankle and Foot Manual Muscle Testing bilateral Dorsiflexion (L4) 4+ Good+ Inversion 4+ Good+ Eversion (S1) 4 Good Comments PF tested in standing with pt able to perform single leg heel raised x 12 each side but with poor stability PT-OP-T Assessment and Plan Start: 02/02/21 12:55 Freq: Status: Active Protocol: Document 04/20/21 13:42 AW (Rec: 04/20/21 13:42 AW [email or web address]) Physical Therapy Plan Discharge Physical Therapy Discharge Reasons Patient Request Discharge Comments Pt states she has improved her balance and feels independent with HEP. She understands she would need a new referral to return to PT. Pt is discharged from current POC.
== END 2021-04-22 07:55 | disposition home or self-care (01) ==
LOC: PHYS 14:30
PROVIDERS: Family Provider Family Medicine; PCP Family Medicine; Referring Provider Family Medicine; Visit Provider Family Medicine
DX: I60.9 Nontraumatic subarachnoid hemorrhage, unspecified (principal); R42 Dizziness and giddiness; R26.89 Other abnormalities of gait and mobility
CPT/HCPCS: 97110; 97112; 97161; 97530; 97535

== ENCOUNTER 2021-03-15 14:30 | Outpatient (RCR) | payer OTHER, SELFPAY ==
--- NOTE | 2021-02-09 11:29 | ST.OPIE ---
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 Brad Rodriguez Reason for Referral aneurism and amnesia Setting Assessment Location Outpatient Care Visit Type Note Type Initial evaluation Patient Information Identification Type Name,Date of Medical History Pt was seen for an evaluation following a brain aneurism that occurred in January 2021. Pt was released from the hospital approximately 2 weeks ago. According to the pt she feels fine. 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 Currently she is on a medical leave. She reported no memory of the event or early hospitalization. She did note that initially, she had short term memory problems, but that they had resolved. Pt's , who accompanied her to the session, agreed with her: She seems like herself before the aneurism. Pt and her stated that she had just completed a complete neurological evaluation by Dr. June in [place] 2 days prior to this evaluation. Subjective Patient Report Pt is a very pleasant woman. She is animated and is anxious to get back to her life. She reports more fatigue than her normal levels. She further repots that she is always doing something, i.e., working , reading, walking, etc. Assessment Oral Motor Examination Completed No: Informal assessment during conversation noted structures and function WNL Informal Assessment Receptive Language Normal Yes Expressive Language Normal Yes Pragmatic Language Normal Yes: Very animated Speech Normal Yes Cognition Normal Appears WFL- Awaiting neurological assessment report Findings/Results Findings No formal assessment was conducted. Pt and her provided medical history and sequence of events following aneurism. Pt reported she had just completed neuological evaluation by Dr. June. She declined further evaluation at this time. Pt appeared with grossly normal cognitive abilities. Am awaiting Dr. June's report. Education provided to pt and her regarding neuroplasticity and the healing process of the brain relative to cognition. Additional s/sx were discussed , which pt denies. Set up a follow up appointment to discuss Dr. June's report and will determine POC based on those findings Prognosis Prognosis Good Based on Cognitive status,Family support,Duration of symptoms/ severity,Time since onset Plan of Care Speech-Language Treatment Yes Frequency dependent on cognitive assessment results Patient/Caregiver Education Patient expressed understanding of evaluation, Patient expressed agreement with goals and treatment plans ,Family/caregivers expressed understanding of evaluation, Family/caregivers expressed agreement with goals and treatment plan Short Term Goals Review of cognitive evaluation results with pt and her POC to be developed as indicated
--- NOTE | 2021-03-15 15:19 | ST.OPTN ---
Visit Care Team Role Provider Type Brad Rodriguez MD Attending Provider Physician Family Provider Other Providers Primary Care Provider Referring Provider Address: [address] [place] [address], [id number] ANESTHESIOLOGY FELLOW Treatment Note ANESTHESIOLOGY FELLOW Treatment Note Start: 02/09/21 10:50 Freq: Status: Active Protocol: Document 03/15/21 15:07 LNK (Rec: 03/15/21 15:19 LNK [email or web address]) Speech Pathology Treatment Note Session Time Visit Start Time 14:30 Visit Stop Time 15:00 Total Visit Minutes 30 Visit Information Visit Number 2 Plan of Care Dates 02/08/21-05/11/21 Setting Treatment Setting Outpatient Care Visit Type Note Type Treatment Note Next Note Type Next Note Type Discharge Summary General Information General Information t was seen for an evaluation following a brain aneurism that occurred in January 2021. Pt was released from the hospital approximately 2 weeks ago. According to the pt she feels fine. 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 Currently she is on a medical leave. She reported no memory of the event or early hospitalization. She did note that initially, she had short term memory problems, but that they had resolved. Pt's , who accompanied her to the session, agreed with her: She seems like herself before the aneurism. Subjective Identification Type Name,Picture Observations/Patient Presentation Pt is a very pleasant woman. She is very animated. Chief Complaint(s) Cognitive Rehab Expectation/Goals: Patient Goals Return to her life Patient Knowledge/Awareness of ANESTHESIOLOGY FELLOW Role Excellent in Treatment Objective Short Term Goals Review of cognitive evaluation results with pt and her POC to be developed as indicated Treatment Activities Pt returned for a follow up visit following her assessment with Dr. June. According to the pt Dr. June has encouraged the pt to move into normal activities slowly , limit reading time, and rest her brain. Pt reported that, since early February, she has been improving with fewer headaches, less fatigue and is starting to do light yoga. 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 She follows up with Dr. June soon to determine how much she will be cleared to work. Relative to cognitive skills, pt reported that she is back to baseline. Pt does not see a needs for ST at this time. This ANESTHESIOLOGY FELLOW agrees. Discharge from ST. Assessment Progress Towards Goals Appropriate for Discharge Patient/Caregiver Understanding Excellent Plan Amount of Therapy Recommended No Further Therapy Frequency of Treatment No Further Therapy Provided Patient/Caregiver Instruction Questions/Concerns Therapy Recommendations Discharge from Speech Therapy
== END 2021-03-16 09:09 | disposition home or self-care (01) ==
LOC: SP 14:30
PROVIDERS: Family Provider Family Medicine; PCP Family Medicine; Referring Provider Family Medicine; Visit Provider Family Medicine
DX: I60.9 Nontraumatic subarachnoid hemorrhage, unspecified (principal); R41.3 Other amnesia
CPT/HCPCS: 92507; 92523

== ENCOUNTER → 2021-07-18 11:25 | Outpatient (CLI) | payer OTHER, SELFPAY ==
[2021-07-18 12:33] LABS: COVID19 - ADMIT (NP swab/PCR) Negative (Negative)
== END ==
PROVIDERS: Family Provider Family Medicine; PCP Family Medicine; Referring Provider Nurse Practitioner Family; Visit Provider Nurse Practitioner Family
DX: Z20.822 Contact with and (suspected) exposure to COVID-19 (principal)
CPT/HCPCS: U0003

== ENCOUNTER → 2021-08-01 14:24 | Outpatient (CLI) | payer OTHER, SELFPAY ==
[2021-08-01 15:52] LABS: COVID19 - ADMIT (NP swab/PCR) Negative (Negative)
== END ==
PROVIDERS: Family Provider Family Medicine; PCP Family Medicine; Referring Provider Physician Assistant; Visit Provider Physician Assistant
DX: Z20.822 Contact with and (suspected) exposure to COVID-19 (principal)
CPT/HCPCS: U0003

== ENCOUNTER → 2021-08-05 19:43 | Outpatient (CLI) | payer OTHER, SELFPAY | PROVIDERS: Family Provider Family Medicine; PCP Family Medicine; Referring Provider Internal Medicine; Visit Provider Internal Medicine | DX: Z23 Encounter for immunization (principal) | CPT/HCPCS: 90471; 90662 ==

== ENCOUNTER → 2021-08-17 09:45 | Outpatient (CLI) | payer OTHER, SELFPAY ==
[2021-08-17 13:51] LABS: Appearance Urine UA SL CLOUDY; Bilirubin Urine UA NEGATIVE (NEGATIVE); Color Urine UA YELLOW; Glucose Urine UA NEGATIVE (Negative); Ketones Urine UA NEGATIVE (NEGATIVE); Leukocyte Esterase Urine UA 2+ (NEGATIVE); Nitrite Urine UA NEGATIVE (Negative); Occult Blood Urine UA TRACE-LYSED (Negative); Protein Urine UA TRACE (Negative); Urobilinogen Urine UA 0.2 E.U./dL (0.2)
[2021-08-17 14:11] LABS: pH Urine UA 7.5 (4.5-8.0)
[2021-08-17 14:33] LABS: RBC Urine 0-1/HPF (0-5/HPF)
[2021-08-17 14:34] LABS: Amorphous Sediment Urine 1+; Bacteria Urine Few (2-10); Culture Indicated Urine Specimen Cultured; Squamous Epithelial Cell Urine 1-5 /HPF (0-5/HPF); WBC Urine 30-100/HPF (0-5/HPF)
== END ==
PROVIDERS: Family Provider Family Medicine; PCP Family Medicine; Visit Provider Physician Assistant
DX: R30.0 Dysuria (principal)
CPT/HCPCS: 81001; 87077; 87086; 87186

== ENCOUNTER → 2021-08-19 09:12 | Outpatient (CLI) | payer OTHER, SELFPAY ==
[2021-08-19 09:50] LABS: Add Manual Diff / Slide Review NO; Basophils Absolute Auto 100 /uL (0-100); Basophils Percent Auto 0.6 % (0-2); Eosinophils Absolute Auto 400 /uL (0-450); Eosinophils Percent Auto 4.9 % (2-4); Hematocrit 42.9 % (36-46); Hemoglobin 14.8 g/dL (12.0-16.0); Lymphocytes Absolute Auto 1600 /uL (1100-4500); Lymphocytes Percent Auto 18.3 % (25-40); Mean Corpuscular HGB Conc 34.6 % (30-36); Mean Corpuscular Hemoglobin 31.2 PG (26-34); Mean Corpuscular Volume 90.1 fL (80-100); Monocytes Absolute Auto 600 /uL (0-900); Monocytes Percent Auto 7.5 % (3-14); Neutrophils Absolute Auto 6000 /uL (1500-7000); Neutrophils Percent Auto 68.7 % (50-75); Platelet Count 225 X10^3/uL (150-400); Red Blood Cell Count 4.76 X10^6/uL (4.0-5.2); Red Cell Distribution Width 13.8 % (11.6-14.8); White Blood Cell Count 8.7 X10^3/uL (4.5-11.0)
== END ==
PROVIDERS: Family Provider Family Medicine; PCP Family Medicine; Referring Provider Family Medicine; Visit Provider Family Medicine
DX: R53.83 Other fatigue (principal)
CPT/HCPCS: 36415; 85025

== ENCOUNTER → 2021-09-30 10:01 | Outpatient (CLI) | payer OTHER, SELFPAY ==
[2021-09-30 11:52] LABS: Appearance Urine UA SL CLOUDY; Bilirubin Urine UA NEGATIVE (NEGATIVE); Color Urine UA YELLOW; Glucose Urine UA NEGATIVE (Negative); Ketones Urine UA NEGATIVE (NEGATIVE); Leukocyte Esterase Urine UA 2+ (NEGATIVE); Nitrite Urine UA NEGATIVE (Negative); Occult Blood Urine UA TRACE-LYSED (Negative); Protein Urine UA NEGATIVE (Negative); Specific Gravity Urine UA 1.015 (1.000-1.035); Urobilinogen Urine UA 0.2 E.U./dL (0.2)
[2021-09-30 12:24] LABS: pH Urine UA 7.5 (4.5-8.0)
[2021-09-30 12:27] LABS: Bacteria Urine Moderate (10-30); Culture Indicated Urine Specimen Cultured; RBC Urine 1-5/HPF (0-5/HPF); Squamous Epithelial Cell Urine None Seen (0-5/HPF); WBC Urine >100/HPF (0-5/HPF)
== END ==
PROVIDERS: Family Provider Family Medicine; PCP Family Medicine; Referring Provider Physician Assistant; Visit Provider Physician Assistant
DX: N30.00 Acute cystitis without hematuria (principal)
CPT/HCPCS: 81003; 81015; 87077; 87086; 87186

== ENCOUNTER → 2022-06-21 10:26 | Outpatient (CLI) | payer OTHER, SELFPAY | PROVIDERS: Family Provider Family Medicine; PCP Family Medicine; Visit Provider Physician Assistant | DX: R30.0 Dysuria (principal) | CPT/HCPCS: 87086 ==

== ENCOUNTER → 2022-06-23 08:32 | Outpatient (CLI) | payer OTHER, SELFPAY ==
[2022-06-23 09:15] LABS: Add Manual Diff / Slide Review NO; Basophils Absolute Auto 100 /uL (0-100); Basophils Percent Auto 0.6 % (0-2); Eosinophils Absolute Auto 300 /uL (0-450); Eosinophils Percent Auto 3.3 % (2-4); Hemoglobin 14.9 g/dL (12.0-16.0); Lymphocytes Absolute Auto 1800 /uL (1100-4500); Lymphocytes Percent Auto 19.7 % (25-40); Mean Corpuscular Hemoglobin 30.5 PG (26-34); Monocytes Absolute Auto 600 /uL (0-900); Monocytes Percent Auto 6.6 % (3-14); Neutrophils Absolute Auto 6300 /uL (1500-7000); Neutrophils Percent Auto 69.8 % (50-75); Platelet Count 267 X10^3/uL (150-400); Red Blood Cell Count 4.89 X10^6/uL (4.0-5.2); Red Cell Distribution Width 13.6 % (11.6-14.8)
[2022-06-23 09:36] LABS: Alanine Aminotransferase 19 IU/L (<35); Albumin 4.1 g/dL (3.5-5.0); Albumin Globulin Ratio 1.3 (1.0-2.8); Alkaline Phosphatase 67 U/L (38-126); Aspartate Aminotransferase 21 IU/L (14-36); BUN Creatinine Ratio 22.7 (6-22); Bilirubin Total 0.8 mg/dL (0.2-1.3); Blood Urea Nitrogen 15 mg/dL (7-17); Calcium 8.8 mg/dL (8.4-10.2); Carbon Dioxide 29 mmol/L (22-32); Chloride 103 mmol/L (98-107); Cholesterol 264 mg/dL (140-199); Estimated Glomerular Filt Rate > 60 mL/min (>60); Globulin 3.1 g/dL (1.7-4.1); Glucose 95 mg/dL (80-110); HDL Cholesterol 55 mg/dL (40-60); HEMOLYSIS < 15 (0-50); LDL Cholesterol Calculated 180 mg/dL (<100); Lactate Dehydrogenase 409 U/L (313-618); Potassium 3.9 mmol/L (3.4-5.1); Sodium 140 mmol/L (137-145); Total Protein 7.2 g/dL (6.3-8.2); Triglycerides 147 mg/dL (35-150)
[2022-06-23 10:05] LABS: TSH w/ Reflex to FT4 2.04 uIU/mL (0.47-4.68)
[2022-06-24 13:48] LABS: Ferritin 27 ng/mL (11-264)
== END ==
PROVIDERS: Family Provider Family Medicine; PCP Family Medicine; Referring Provider Physician Assistant; Visit Provider Physician Assistant
DX: Z13.0 Encounter for screening for diseases of the blood and blood-forming organs and certain disorders involving the immune mechanism (principal); Z85.79 Personal history of other malignant neoplasms of lymphoid, hematopoietic and related tissues; Z86.79 Personal history of other diseases of the circulatory system; Z13.220 Encounter for screening for lipoid disorders; Z13.6 Encounter for screening for cardiovascular disorders; Z86.39 Personal history of other endocrine, nutritional and metabolic disease; D64.9 Anemia, unspecified
CPT/HCPCS: 36415; 80053; 80061; 82728; 83615; 84443; 85025

== ENCOUNTER → 2022-07-05 14:38 | Outpatient (CLI) | payer OTHER, SELFPAY ==
--- NOTE | 2022-07-05 | DI.MG.S_ITS ---
BILATERAL DIGITAL SCREENING MAMMOGRAM 3D/2D WITH CAD: 07/05/2022 CLINICAL: Routine screening. Baseline exam. No prior exams were available for comparison. Both breasts are heterogeneously dense, which may obscure small masses (category c / 51-75% glandular tissue). Current study was also evaluated with a Computer Aided Detection (CAD) system. No significant masses, calcifications, or other findings are seen in either breast. IMPRESSION: NEGATIVE There is no mammographic evidence of malignancy. A 1 year screening mammogram is recommended. Based on the Tyrer Cuzick model (a risk assessment model) the patient's lifetime risk is 14.2% and her 10 year risk is 9.5%. According to the ACR, ACS, and NCCN guidelines, an annual breast MRI exam along with mammogram is recommended if the patient's lifetime risk is 20% or greater. This exam was interpreted at Station ID: [id number]. NOTE: For mammograms, a report in lay terms will be sent to the patient. Approximately 15% of breast malignancies will not be visualized mammographically. In the management of a palpable breast mass, a negative mammogram must not discourage biopsy of a clinically suspicious lesion. Electronically Signed By: Debi butler/robert:07/05/2022 14:59:43 letter sent: Normal Exam ACR BI-RADS Category 1: Negative [id number]
== END ==
PROVIDERS: Family Provider Family Medicine; PCP Family Medicine; Referring Provider Family Medicine; Visit Provider Family Medicine
DX: Z12.31 Encounter for screening mammogram for malignant neoplasm of breast (principal); Z13.820 Encounter for screening for osteoporosis; F17.200 Nicotine dependence, unspecified, uncomplicated; Z78.0 Asymptomatic menopausal state; M85.851 Other specified disorders of bone density and structure, right thigh
CPT/HCPCS: 77063; 77067; 77080

== ENCOUNTER → 2022-07-07 14:15 | Outpatient (CLI) | payer OTHER, SELFPAY | PROVIDERS: Family Provider Family Medicine; PCP Family Medicine; Referring Provider Internal Medicine; Visit Provider Internal Medicine | DX: Z23 Encounter for immunization (principal) | CPT/HCPCS: 90471; 90662 ==

== ENCOUNTER → 2023-05-01 09:06 | Outpatient (CLI) | payer OTHER, SELFPAY ==
--- NOTE | 2023-05-01 09:07 | DI.RAD.S_ITS ---
PROCEDURE: XR LUMBAR SPINE 2-3V INDICATIONS: low back pain and leg radiculopathy 8 weeks TECHNIQUE: 3 views of the lumbar spine were acquired. COMPARISON: [facility], , L-SPINE 2-3 VIEWS, 01/27/2010, 13:18. FINDINGS: Bones: 5 jxp-qxv-qiajfpv vertebrae are present. There is unchanged trace retrolisthesis of L2 on L3, L3 on L4, L4 on L5. Multilevel ogsc-yv-hdqhtnyp disc space narrowing most severe at L1-2, L2-3, progressive. Multilevel foraminal narrowing are present moderate to severe at L4-5, L5-S1, progressive. No vertebral body compression fractures. No suspicious bony lesions. Bridging anterior osteophytes are present at L1-2. Soft tissues: Overlying bowel gas pattern is normal. No suspicious soft tissue calcifications. IMPRESSION: Multilevel degenerative changes progressive compared to prior exam. Dictated by: Sonia Redding M.D. on 05/01/2023 at 14:52 Approved by: Sonia Redding M.D. on 05/01/2023 at 14:53
--- NOTE | 2023-05-01 09:07 | DI.RAD.S_ITS ---
PROCEDURE: XR HIP W PEL IF DONE LT 2V INDICATIONS: low back pain and leg radiculopathy 8 weeks TECHNIQUE: AP pelvis with lateral view(s) of the left hip(s). COMPARISON: None. FINDINGS: Bones: No fractures or dislocations. Pelvic ring appears intact. No suspicious bony lesions. Mild bilateral degenerative hip joint space narrowing. No erosions. Minimal periarticular osteophytes are present. Soft tissues: The visualized bowel gas pattern is normal. No suspicious soft tissue calcifications. IMPRESSION: Mild bilateral hip arthritic change. Dictated by: Sonia Redding M.D. on 05/01/2023 at 14:52 Approved by: Sonia Redding M.D. on 05/01/2023 at 14:52
== END ==
PROVIDERS: Family Provider Family Medicine; PCP Family Medicine; Referring Provider Family Medicine; Visit Provider Family Medicine
DX: M47.816 Spondylosis without myelopathy or radiculopathy, lumbar region (principal); M54.42 Lumbago with sciatica, left side; M48.061 Spinal stenosis, lumbar region without neurogenic claudication; M48.07 Spinal stenosis, lumbosacral region
CPT/HCPCS: 72100; 73502

== ENCOUNTER → 2023-05-11 15:43 | Outpatient (CLI) | payer OTHER, SELFPAY ==
--- NOTE | 2023-05-11 15:44 | DI.MRI.S_ITS ---
PROCEDURE: MR LUMBAR SPINE WO CON INDICATIONS: low back pain with sciatica TECHNIQUE: Noncontrast sagittal T1 spin echo and T2 fast echo, sagittal STIR, and T2 fast spin echo through the lumbar spine. In cases with scoliosis, additional coronal T2 fast spin echo may be performed. COMPARISON: None. FINDINGS: Image quality: Excellent. Alignment and Curvature: There is minimal retrolisthesis seen at L2-L3 and L3-L4 Bone Marrow: Marrow is of normal overall signal. Along the posterior aspect of the L4 vertebral body on the left, there is a 1.6 cm focus of abnormal bone marrow that demonstrates increased T2 weighted signal, decreased T1 weighted signal, and increased STIR signal. No acute vertebral body compression fractures. Spinal Cord: Conus medullaris terminates at the L1-L2 level. Visualized cord demonstrates normal signal and size. Paraspinous Soft Tissues: No paravertebral masses. T12-L1: Wydw-kl-lxnhhthg loss of disc height and disc signal can be seen. Bridging anterior osteophytes are seen. Mild generalized disc bulge is seen. No significant neural foraminal or central canal narrowing can be seen. L1-L2: Mild loss of disc height is seen. Loss of disc signal is seen. Bridging endplate osteophytes are seen. Mild generalized disc bulge is seen. No significant neural foraminal or central canal narrowing can be seen. L2-L3: Moderate loss of disc height is seen. Loss of disc signal is seen. Bridging endplate osteophytes are seen. Mild to moderate disc bulge is seen, which is eccentric to the left. There is a superimposed central disc protrusion. Moderate facet there is moderate right-sided and moderate to severe left-sided neural foraminal narrowing. There is a degree of compression seen upon the exiting left L2 nerve root. Moderate central canal narrowing is seen. L3-L4: The disc height is well-preserved. Loss of disc signal is seen at this level. Mild to moderate disc bulge is seen. There is a central/left disc extrusion, with inferior migration of the disc material, which is best seen on series 3, image 10. Moderate facet joint hypertrophy is seen. Moderate to severe bilateral neural foraminal narrowing can be seen, left worse than right. There is a degree of compression seen upon the exiting nerve roots. Moderate to severe central canal narrowing is seen. L4-L5: The disc height is well-preserved. Loss of disc signal is seen at this level. Moderate generalized disc bulge is seen. At least moderate facet hypertrophy is seen, left worse than right. There is moderate to severe bilateral neural foraminal narrowing seen, with an associated a degree of compression seen upon the exiting nerve roots. Moderate to severe central canal narrowing is seen. L5-S1: The disc height is well-preserved. Loss of disc signal is seen at this level. Mild generalized disc bulge is seen. Mild to moderate facet hypertrophy is seen. There is at least moderate bilateral neural foraminal narrowing seen. There is a degree of compression seen upon the exiting nerve roots. Mild central canal narrowing is seen. IMPRESSION: Multiple levels of significant lumbar spine degenerative change can be seen, including a central/left disc extrusion seen at the L3-L4 level. The degenerative changes are overall worst at the L3-L4 level. Along the posterior aspect of the L4 vertebral body, there is an abnormal bone marrow focus seen, which is nonspecific. This may represent a bone contusion or potentially metastatic disease. Please consider short-term follow-up with IV contrast for further evaluation. Several sites of significant neural foraminal narrowing can be seen, with associated exiting nerve root compression. Dictated by: Michael Armstrong M.D. on 05/12/2023 at 14:10 Approved by: Michael Armstrong M.D. on 05/12/2023 at 14:15
== END ==
PROVIDERS: Family Provider Family Medicine; PCP Family Medicine; Referring Provider Family Medicine; Visit Provider Family Medicine
DX: M51.16 Intervertebral disc disorders with radiculopathy, lumbar region (principal); M47.26 Other spondylosis with radiculopathy, lumbar region; M47.27 Other spondylosis with radiculopathy, lumbosacral region; M48.061 Spinal stenosis, lumbar region without neurogenic claudication; M48.07 Spinal stenosis, lumbosacral region
CPT/HCPCS: 72148

== ENCOUNTER → 2023-05-26 08:53 | Outpatient (CLI) | payer OTHER, SELFPAY ==
[2023-05-26 10:54] LABS: Add Manual Diff / Slide Review NO; Basophils Absolute Auto 0 /uL (0-100); Basophils Percent Auto 0.6 % (0-2); Eosinophils Absolute Auto 100 /uL (0-450); Eosinophils Percent Auto 1.1 % (2-4); Hematocrit 43.8 % (36-46); Lymphocytes Absolute Auto 2400 /uL (1100-4500); Lymphocytes Percent Auto 27.5 % (25-40); Mean Corpuscular HGB Conc 34.2 % (30-36); Mean Corpuscular Volume 90.8 fL (80-100); Monocytes Absolute Auto 600 /uL (0-900); Monocytes Percent Auto 6.5 % (3-14); Neutrophils Absolute Auto 5500 /uL (1500-7000); Neutrophils Percent Auto 64.3 % (50-75); Platelet Count 278 X10^3/uL (150-400); Red Blood Cell Count 4.82 X10^6/uL (4.0-5.2); Red Cell Distribution Width 13.9 % (11.6-14.8); White Blood Cell Count 8.6 X10^3/uL (4.5-11.0)
[2023-05-26 10:57] LABS: Alanine Aminotransferase 19 IU/L (<35); Albumin 4.1 g/dL (3.5-5.0); Albumin Globulin Ratio 1.6 (1.0-2.8); Alkaline Phosphatase 53 U/L (38-126); Aspartate Aminotransferase 21 IU/L (14-36); Bilirubin Total 0.7 mg/dL (0.2-1.3); Blood Urea Nitrogen 18 mg/dL (7-17); Calcium 9.3 mg/dL (8.4-10.2); Carbon Dioxide 25 mmol/L (22-32); Chloride 104 mmol/L (98-107); Estimated Glomerular Filt Rate > 60 mL/min (>60); Globulin 2.5 g/dL (1.7-4.1); Glucose 84 mg/dL (80-110); HEMOLYSIS < 15 (0-50); Lactate Dehydrogenase 204 U/L (120-246); Potassium 3.9 mmol/L (3.4-5.1); Sodium 138 mmol/L (137-145); Total Protein 6.6 g/dL (6.3-8.2)
[2023-05-26 11:09] LABS: Vitamin D 25 Hydroxy (D3) 30.6 ng/mL (30.0-100.0)
[2023-05-26 11:22] LABS: TSH w/ Reflex to FT4 1.75 uIU/mL (0.47-4.68)
[2023-05-26 11:42] LABS: Vitamin B12 199 pg/mL (239-931)
[2023-05-26 12:41] LABS: Ferritin 17 ng/mL (11-264)
[2023-05-29 10:03] LABS: Cholesterol, Total 278 mg/dL (100-199); HDL-Cholesterol 71 mg/dL (>39); HDL-Particle (Total) 40.3 umol/L (>=30.5); LDL Particle 2389 nmol/L (<1000); LDL Size 21.4 nm (>20.5); LDL-Cholsterol 193 mg/dL (0-99); LP-IR Score 59 (<=45); Small LDL- Particle 609 nmol/L (<=527); Triglycerides 85 mg/dL (0-149)
[2023-05-29 16:35] LABS: Fecal Immunochemical Test Negative (Negative)
== END ==
PROVIDERS: Family Provider Family Medicine; PCP Family Medicine; Referring Provider Physician Assistant; Visit Provider Physician Assistant
DX: R53.83 Other fatigue (principal); M85.80 Other specified disorders of bone density and structure, unspecified site; Z85.72 Personal history of non-Hodgkin lymphomas; Z12.11 Encounter for screening for malignant neoplasm of colon; D64.9 Anemia, unspecified; E78.2 Mixed hyperlipidemia
CPT/HCPCS: 36415; 80053; 80061; 82274; 82306; 82607; 82728; 83615; 83704; 84443; 85025

== ENCOUNTER → 2023-05-31 10:46 | Outpatient (CLI) | payer OTHER, SELFPAY ==
--- NOTE | 2023-05-31 10:47 | DI.MRI.S_ITS ---
PROCEDURE: MR LUMBAR SPINE W CON INDICATIONS: abnormal bone marrow focus seen on 05/11/23 MRI TECHNIQUE: Axial T1 precontrast as well as axial and sagittal postcontrast fat suppressed sequences were obtained COMPARISON: [facility], CR, XR LUMBAR SPINE 2-3V, 05/01/2023, 9:10. [facility], MR, MR LUMBAR SPINE WO CON, 05/11/2023, 16:07. FINDINGS: Corresponding with the area of concern in the prior MRI, there is an ill-defined focus of metastatic marrow replacement involving the posterior left L4 vertebral body and pedicle extending through the posterior cortex into the left-sided ventral epidural space. The lesion densely enhances and measures 2.7 x 1.9 x 1.8 cm overall. 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 on 05/31/2023 at 13:26
== END ==
PROVIDERS: Family Provider Family Medicine; PCP Family Medicine; Referring Provider Family Medicine; Visit Provider Family Medicine
DX: M54.42 Lumbago with sciatica, left side (principal); M48.061 Spinal stenosis, lumbar region without neurogenic claudication
CPT/HCPCS: 72149; A9579

== ENCOUNTER → 2023-06-15 07:34 | Outpatient (CLI) | payer OTHER, SELFPAY ==
--- NOTE | 2023-06-15 07:35 | DI.CT.S_ITS ---
PROCEDURE: CT CHEST ABD PEL W CON INDICATIONS: Abnormal MRI TECHNIQUE: After the administration of oral and intravenous contrast, axial sections acquired from the supraclavicular neck to the pubic symphysis. Coronal and sagittal reformats were performed. For radiation dose reduction, the following was used: automated exposure control, adjustment of mA and/or kV according to patient size. COMPARISON: [facility], MR, MR LUMBAR SPINE WO CON, 05/11/2023, 16:07. [facility], MR, MR LUMBAR SPINE W CON, 05/31/2023, 10:49. [facility], CT, CHEST ABDOMEN PELVIS WITH CONTRAST, 10/24/2008, 14:16. FINDINGS: Image quality: Excellent. CHEST: Lower Neck: No enlarged lymph nodes. Thyroid: Unremarkable Axillae: No enlarged lymph nodes. Chest Wall: Unremarkable. Lungs and Airways: No consolidation or suspicious nodules. Mild upper lobe predominant pulmonary emphysematous changes. Diffusely scattered faint ground-glass opacities seen throughout the bilateral hemithoraces. No significant airway thickening. No focal mass lesions. No septal thickening or nodularity. Pleura: No pneumothorax or pleural effusions. Heart: Heart size is normal. No pericardial effusion. Coronary atherosclerotic vascular calcifications are noted. Thoracic Vessels: The aorta and pulmonary arteries demonstrate normal size. Atherosclerotic calcifications of the aortic arch are present. Mediastinum and Evelyne: No enlarged lymph nodes. Esophagus: No wall thickening. No hiatal hernia. ABDOMEN: Liver: Liver is unremarkable in appearance without focal intrahepatic abnormalities. No intrahepatic or extrahepatic biliary ductal dilatation. A few hepatic hypodensities redemonstrated. Gallbladder: Gallbladder is unremarkable without CT evidence for acute inflammation. Biliary ducts: No intrahepatic or extrahepatic biliary ductal dilatation identified. Pancreas: Homogeneous enhancement without focal lesions or pancreatic ductal dilatation. No peripancreatic inflammation or organized fluid collections. Spleen: No splenomegaly Adrenal Glands: Unremarkable. Kidneys and Ureters: Kidneys are symmetric in size and enhancement, and there is no obstructive uropathy. No perinephric inflammatory changes. Ureters are normal in course and caliber. Stomach and Bowel: Stomach, small bowel loops, and colon are unremarkable. Colonic diverticulosis without acute diverticulitis. Normal appendix. Peritoneum: No abnormal intraperitoneal fluid. No free air. Ventral Wall: Small fat containing umbilical hernia without acute inflammation. Abdominal Nodes: No retroperitoneal or mesenteric adenopathy by size criteria. Vessels: Scattered atherosclerotic calcifications of the abdominal aorta and iliac vessels without aneurysmal dilatation. The inferior vena cava appears patent. PELVIS: Pelvic Organs: Unremarkable as imaged Bladder: Urinary bladder thickness appears normal for degree of distention. No perivesicular inflammatory stranding. Pelvic Nodes: No enlarged lymph nodes. Miscellaneous: No inguinal hernias are seen. Bones: Mild sclerosis involving the L4 vertebral body correlating with abnormal signal described on comparison MRI. Otherwise, no other suspicious osseous lesions identified. No acute compression fractures. Multilevel spondylosis of the imaged spine. Degenerative changes of the bilateral hips. IMPRESSION: 1. CT chest, abdomen, and pelvis without acute abnormalities . 2. Mild osseous sclerosis involving the L4 vertebral body correlating with abnormal signal and enhancement described on comparison MRI. No evidence for acute compression fractures. Findings are compatible with metastatic disease which is better visualized on MRI. No other suspicious osseous lesions identified. 3. No evidence for suspicious adenopathy in the chest, abdomen, or pelvis. Dictated by: Cesario Patton M.D. on 06/15/2023 at 10:16 Approved by: Cesario Patton M.D. on 06/15/2023 at 10:30
== END ==
PROVIDERS: Family Provider Family Medicine; PCP Family Medicine; Referring Provider Family Medicine; Visit Provider Family Medicine
DX: R93.7 Abnormal findings on diagnostic imaging of other parts of musculoskeletal system (principal); Z85.72 Personal history of non-Hodgkin lymphomas; C79.51 Secondary malignant neoplasm of bone; C80.1 Malignant (primary) neoplasm, unspecified; G95.89 Other specified diseases of spinal cord
CPT/HCPCS: 71260; 74177; Q9967

== ENCOUNTER → 2023-06-22 13:46 | Outpatient (CLI) | payer OTHER, SELFPAY | PROVIDERS: Family Provider Family Medicine; PCP Family Medicine; Referring Provider Family Medicine; Visit Provider Family Medicine | DX: Z23 Encounter for immunization (principal) | CPT/HCPCS: 90471; 90662 ==

== ENCOUNTER → 2023-08-02 10:42 | Outpatient (CLI) | payer OTHER, SELFPAY ==
--- NOTE | 2023-08-02 10:43 | DI.MG.S_ITS ---
BILATERAL DIGITAL SCREENING MAMMOGRAM 3D/2D WITH CAD: 08/02/2023 CLINICAL: Routine screening. Comparison is made to exam dated: 07/05/2022 mammogram - [facility]. Both breasts are heterogeneously dense, which may obscure small masses (category c / 51-75% glandular tissue). Current study was also evaluated with a Computer Aided Detection (CAD) system. No significant masses, calcifications, or other findings are seen in either breast. There has been no significant interval change. IMPRESSION: NEGATIVE There is no mammographic evidence of malignancy. A 1 year screening mammogram is recommended. Based on the Tyrer Cuzick model (a risk assessment model) the patient's lifetime risk is 13.7% and her 10 year risk is 9.6%. According to the ACR, ACS, and NCCN guidelines, an annual breast MRI exam along with mammogram is recommended if the patient's lifetime risk is 20% or greater. This exam was interpreted at Station ID: [id number]. NOTE: For mammograms, a report in lay terms will be sent to the patient. Approximately 15% of breast malignancies will not be visualized mammographically. In the management of a palpable breast mass, a negative mammogram must not discourage biopsy of a clinically suspicious lesion. Electronically Signed By: Rolando bradley/robert:08/02/2023 14:00:30 letter sent: Normal Exam ACR BI-RADS Category 1: Negative [id number]
== END ==
PROVIDERS: Family Provider Family Medicine; PCP Family Medicine; Referring Provider Family Medicine; Visit Provider Family Medicine
DX: Z12.31 Encounter for screening mammogram for malignant neoplasm of breast (principal)
CPT/HCPCS: 77063; 77067

== ENCOUNTER → 2023-09-07 10:55 | Outpatient (CLI) | payer OTHER, SELFPAY ==
[2023-09-07 12:21] LABS: HEMOLYSIS < 15 (0-50); Iron 112 ug/dL (37-170)
[2023-09-07 12:22] LABS: Vitamin D 25 Hydroxy (D3) 40.5 ng/mL (30.0-100.0)
[2023-09-07 12:37] LABS: Percent Iron Saturation 34 % (15-50); Total Iron Binding Capacity 332 ug/dL (265-497); Transferrin 301 mg/dL (206-381)
[2023-09-07 13:05] LABS: Hemoglobin A1C% w Est Avg Glu 5.4 % (4.0-6.0)
[2023-09-07 13:11] LABS: Ferritin 21 ng/mL (11-264)
[2023-09-07 13:25] LABS: Vitamin B12 258 pg/mL (239-931)
== END ==
LOC: LAB 10:56
PROVIDERS: Family Provider Family Medicine; PCP Family Medicine; Referring Provider Physician Assistant; Visit Provider Physician Assistant
DX: E53.8 Deficiency of other specified B group vitamins (principal); E55.9 Vitamin D deficiency, unspecified; M85.80 Other specified disorders of bone density and structure, unspecified site; R73.01 Impaired fasting glucose; Z78.0 Asymptomatic menopausal state; Z86.2 Personal history of diseases of the blood and blood-forming organs and certain disorders involving the immune mechanism
CPT/HCPCS: 36415; 82306; 82607; 82728; 83036; 83540; 83550

== ENCOUNTER → 2023-11-23 15:20 | Outpatient (CLI) | payer OTHER, SELFPAY ==
--- NOTE | 2023-11-23 15:21 | DI.RAD.S_ITS ---
Bone Density Report Name: HORTENSIA SOOD Age: 68 Sex: Female Ethnicity: White Date of : 1955 Indication: osteopenia; Referring Provider: CAROL ANN CLOUD Study: Bone densitometry was performed. Exam Date: November 23, 2023 Accession number: [id number] Bone Density: Region BMD T-score Z-score Classification AP Spine(L2, L3, L4) 0.874 -1.9 0.3 Osteopenia Femoral Neck (Left) 0.586 -2.4 -0.6 Osteopenia Total Hip (Left) 0.704 -1.9 -0.5 Osteopenia Femoral Neck (Right) 0.580 -2.4 -0.7 Osteopenia Total Hip (Right) 0.679 -2.2 -0.7 Osteopenia Total Hip Mean 0.692 -2.1 -0.6 Osteopenia World Health Organization criteria for BMD impression classify patients as: Normal (T-score at or above -1.0), Osteopenia (T-score between -1.0 and -2.5), or Osteoporosis (T-score at or below -2.5). 10-year Fracture Risk(1): Major Osteoporotic Fracture 14% Hip Fracture 4.9% Reported Risk Factors: [place] (), Neck BMD=0.586, BMI=21.8, smoking (1) FRAX(R) Version 3.08. Fracture probability calculated for an untreated patient. Fracture probability may be lower if the patient has received treatment. Previous Exams: -- Region Exam Age BMD T-score BMD Change BMD Change Date g/cm2 vs Baseline vs Previous -- AP Spine (L2-L4) 11/23/2023 68 0.874 -1.9 -0.090 (-9.4%)# 0.019 (2.2%) 07/05/2022 67 0.856 -2.0 -0.109 (-11.3%)# -0.109 (-11.3%)# 12/02/2008 53 0.965 -1.0 Total Hip(Left) 11/23/2023 68 0.704 -1.9 -0.091 (-11.4%)# 0.003 (0.4%) 07/05/2022 67 0.701 -2.0 -0.094 (-11.8%)# -0.094 (-11.8%)# 12/02/2008 53 0.795 -1.2 Total Hip(Right) 11/23/2023 68 0.679 -2.2 -0.106 (-13.5%)# 0.007 (1.0%) 07/05/2022 67 0.672 -2.2 -0.113 (-14.4%)# -0.113 (-14.4%)# 12/02/2008 53 0.785 -1.3 -- *Denotes significance at 95% confidence level, LSC for AP Spine = 0.022 g/cm2, LSC for Total Hip = 0.027 g/cm2 # Denotes dissimilar scan types or analysis methods Impression: The patient has low bone mass, based on the Left Femoral Neck T-score. The patient has an estimated ten-year risk of hip fracture of 4.9% and an estimated ten-year risk of major fracture of 14%, based on the WHO FRAX algorithm. The patient has risk factors, including: smoking. No significant bone loss was observed. Discussion: BONE DENSITY IS LOW AT ONE OR MORE SKELETAL SITES. THE PATIENT'S BMD AND CLINICAL RISK FACTORS CONTRIBUTE TO THIS PATIENT'S INCREASED RISK OF FRACTURE. This patient's lowest T-score is low at one or more skeletal sites. It meets the World Health Organization's (WHO) criteria for low bone mass (T-score between -1.0 and -2.5). The patient's 10-year risk of hip fracture as calculated by FRAX exceeds the threshold where pharmacological therapy is recommended by the National Osteoporosis Foundation (NOF). However, all treatment decisions require clinical judgment and consideration of individual patient factors, including patient preferences, comorbidities, previous drug use, risk factors not captured in the FRAX model (e.g., frailty, falls, vitamin D deficiency, increased bone turnover, interval significant decline in bone density) and possible under or overestimation of fracture risk by FRAX. The patient should follow a healthful lifestyle (good nutrition with adequate calcium and vitamin D, and appropriate weight-bearing exercise). Follow-Up: Consider a repeat BMD and Vertebral Fracture Assessment (VFA) exam in 2 years or sooner if medically necessary, to reassess this patient's status. Reported by: MIGUEL CARABALLO M.D. on 11/23/2023 3:42:00 PM.
== END ==
PROVIDERS: Family Provider Family Medicine; PCP Family Medicine; Referring Provider Physician Assistant; Visit Provider Physician Assistant
DX: M85.852 Other specified disorders of bone density and structure, left thigh (principal); Z78.0 Asymptomatic menopausal state
CPT/HCPCS: 77080

== ENCOUNTER → 2023-12-14 07:36 | Outpatient (CLI) | payer OTHER, SELFPAY ==
[2023-12-14 15:59] LABS: Cholesterol 241 mg/dL (140-199); HDL Cholesterol 54 mg/dL (40-60); LDL Cholesterol Calculated 168 mg/dL (<100); Triglycerides 95 mg/dL (35-150)
[2023-12-14 16:50] LABS: Vitamin B12 304 pg/mL (239-931)
== END ==
LOC: LAB 07:37
PROVIDERS: Family Provider Family Medicine; PCP Family Medicine; Referring Provider Physician Assistant; Visit Provider Physician Assistant
DX: E53.8 Deficiency of other specified B group vitamins (principal); E78.2 Mixed hyperlipidemia
CPT/HCPCS: 36415; 80061; 82607

== ENCOUNTER → 2024-01-24 10:45 | Outpatient (CLI) | payer OTHER, SELFPAY ==
--- NOTE | 2024-01-24 10:47 | DI.MRI.S_ITS ---
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 COMPARISON: [facility], CT, CT HEAD/BRAIN WO CON, 03/01/2021, 15:58. No prior exams available FINDINGS: Image quality: Excellent. Anterior circulation: Intracranial internal carotid arteries demonstrate normal size and intraluminal flow signal. The flow within the paired anterior cerebral arteries is normal and symmetric. The flow within the middle cerebral arteries is normal and symmetric. The anterior communicating artery is seen. No stenoses, occlusions, or aneurysms. Posterior circulation: Visualized portions of the vertebral arteries demonstrate normal caliber, and join to form a normal appearing basilar artery. The flow within the posterior cerebral arteries is normal and symmetric. No stenoses, occlusions, or aneurysms. Signal void in the region of the posterior communicating artery consistent with aneurysm coil. Adjacent posterior communicating artery itself is patent and within normal limits. IMPRESSION: Right PCOM coil without evidence of recurrent or residual aneurysm Approved by: Francis Mccann M.D. on 01/24/2024 at 16:34
--- NOTE | 2024-01-24 10:47 | DI.MRI.S_ITS ---
PROCEDURE: MR LUMBAR SPINE W CON INDICATIONS: abnormal bone focus TECHNIQUE: After the administration of contrast, sagittal and axial T1 spin echo with fat saturation through the lumbar spine. COMPARISON: [facility], MR, MR LUMBAR SPINE W CON, 05/31/2023, 10:49. FINDINGS: Image quality: Excellent. Limited exam with postcontrast only images demonstrate enhancement within the L4 vertebral body. Extent of enhancement appears mildly more prominent with increased enhancement extending through the mid and portions of the anterior vertebral body. There is slight posterior extension to the pedicle. The epidural extension identified on prior exam appear similar. It is noted given lack of T1/T2 sequences, overall appearance of marrow edema cannot be assessed. No new additional areas of abnormal enhancement are identified. Degenerative changes are stable. IMPRESSION: Mild appearance of increased enhancement within the L4 vertebral body without pathologic fracture. Given limited exam, assessment of marrow edema cannot be obtained. Dictated by: Sonia Redding M.D. on 01/25/2024 at 9:39 Approved by: Sonia Redding M.D. on 01/25/2024 at 10:13
== END ==
LOC: MRI 10:45
PROVIDERS: Family Provider Family Medicine; PCP Student in an Organized Health Care Education/Training Program; Referring Provider Student in an Organized Health Care Education/Training Program; Visit Provider Student in an Organized Health Care Education/Training Program
DX: R93.7 Abnormal findings on diagnostic imaging of other parts of musculoskeletal system (principal); Z86.79 Personal history of other diseases of the circulatory system
CPT/HCPCS: 70544; 72149; A9579

== ENCOUNTER → 2024-02-26 07:32 | Outpatient (CLI) | payer OTHER, SELFPAY ==
[2024-02-26 08:24] LABS: Cholesterol 162 mg/dL (140-199); HDL Cholesterol 62 mg/dL (40-60); LDL Cholesterol Calculated 87 mg/dL (<100); Triglycerides 66 mg/dL (35-150)
== END ==
LOC: LAB 07:32
PROVIDERS: Family Provider Family Medicine; PCP Student in an Organized Health Care Education/Training Program; Referring Provider Student in an Organized Health Care Education/Training Program; Visit Provider Student in an Organized Health Care Education/Training Program
DX: E78.2 Mixed hyperlipidemia (principal)
CPT/HCPCS: 36415; 80061

== ENCOUNTER → 2024-06-20 07:25 | Outpatient (CLI) | payer OTHER, SELFPAY ==
[2024-06-20 08:22] LABS: Add Manual Diff / Slide Review NO; Basophils Absolute Auto 100 /uL (0-100); Basophils Percent Auto 0.5 % (0-2); Eosinophils Absolute Auto 100 /uL (0-450); Eosinophils Percent Auto 1.2 % (2-4); Hematocrit 42.4 % (36-46); Hemoglobin 14.5 g/dL (12.0-16.0); Lymphocytes Absolute Auto 2300 /uL (1100-4500); Lymphocytes Percent Auto 23.2 % (25-40); Mean Corpuscular HGB Conc 34.2 % (30-36); Mean Corpuscular Hemoglobin 30.9 PG (26-34); Mean Corpuscular Volume 90.4 fL (80-100); Monocytes Absolute Auto 700 /uL (0-900); Monocytes Percent Auto 7.4 % (3-14); Neutrophils Absolute Auto 6800 /uL (1500-7000); Neutrophils Percent Auto 67.7 % (50-75); Platelet Count 286 X10^3/uL (150-400); Red Blood Cell Count 4.69 X10^6/uL (4.0-5.2); Red Cell Distribution Width 13.6 % (11.6-14.8); White Blood Cell Count 10.1 X10^3/uL (4.5-11.0)
[2024-06-20 08:44] LABS: Alanine Aminotransferase 29 IU/L (<35); Albumin 4.2 g/dL (3.5-5.0); Albumin Globulin Ratio 1.8 (1.0-2.8); Alkaline Phosphatase 61 U/L (38-126); Aspartate Aminotransferase 27 IU/L (14-36); BUN Creatinine Ratio 24.6 (6-22); Bilirubin Total 0.8 mg/dL (0.2-1.3); Blood Urea Nitrogen 14 mg/dL (7-17); Calcium 9.3 mg/dL (8.4-10.2); Carbon Dioxide 27 mmol/L (22-32); Chloride 105 mmol/L (98-107); Cholesterol 197 mg/dL (140-199); Estimated Glomerular Filt Rate > 60 mL/min (>60); Globulin 2.3 g/dL (1.7-4.1); Glucose 101 mg/dL (80-110); HDL Cholesterol 70 mg/dL (40-60); HEMOLYSIS < 15 (0-50); LDL Cholesterol Calculated 110 mg/dL (<100); Lactate Dehydrogenase 203 U/L (120-246); Potassium 4.5 mmol/L (3.4-5.1); Sodium 140 mmol/L (137-145); Total Protein 6.5 g/dL (6.3-8.2); Triglycerides 86 mg/dL (35-150)
[2024-06-20 09:17] LABS: TSH w/ Reflex to FT4 1.94 uIU/mL (0.47-4.68)
== END ==
PROVIDERS: Family Provider Family Medicine; PCP Student in an Organized Health Care Education/Training Program; Referring Provider Student in an Organized Health Care Education/Training Program; Visit Provider Student in an Organized Health Care Education/Training Program
DX: Z00.01 Encounter for general adult medical examination with abnormal findings (principal); Z85.71 Personal history of Hodgkin lymphoma; E78.2 Mixed hyperlipidemia
CPT/HCPCS: 36415; 80053; 80061; 83615; 84443; 85025

== ENCOUNTER → 2024-08-06 07:30 | Outpatient (CLI) | payer MEDICARE, SELFPAY ==
[2024-08-06 10:13] LABS: Cholesterol 191 mg/dL (140-199); HDL Cholesterol 68 mg/dL (40-60); LDL Cholesterol Calculated 106 mg/dL (<100); Triglycerides 83 mg/dL (35-150)
== END ==
PROVIDERS: Family Provider Family Medicine; PCP Student in an Organized Health Care Education/Training Program; Referring Provider Student in an Organized Health Care Education/Training Program; Visit Provider Student in an Organized Health Care Education/Training Program
DX: E78.2 Mixed hyperlipidemia (principal)
CPT/HCPCS: 36415; 80061

== ENCOUNTER → 2024-08-07 14:24 | Outpatient (CLI) | payer MEDICARE, SELFPAY ==
--- NOTE | 2024-08-07 14:25 | DI.MG.S_ITS ---
BILATERAL DIGITAL SCREENING MAMMOGRAM 3D/2D WITH CAD: 08/07/2024 CLINICAL: Routine screening. Comparison is made to exams dated: 08/02/2023 mammogram and 07/05/2022 mammogram - [facility]. The breasts are heterogeneously dense, which may obscure small masses (category c / 51-75% glandular tissue). Current study was also evaluated with a Computer Aided Detection (CAD) system. No significant masses, calcifications, or other findings are seen in either breast. There has been no significant interval change. IMPRESSION: NEGATIVE There is no mammographic evidence of malignancy. A 1 year screening mammogram is recommended. Based on the Tyrer Cuzick model (a risk assessment model) the patient's lifetime risk is 13.3% and her 10 year risk is 9.8%. According to the ACR, ACS, and NCCN guidelines, an annual breast MRI exam along with mammogram is recommended if the patient's lifetime risk is 20% or greater. This exam was interpreted at Station ID: [id number]. NOTE: For mammograms, a report in lay terms will be sent to the patient. Approximately 15% of breast malignancies will not be visualized mammographically. In the management of a palpable breast mass, a negative mammogram must not discourage biopsy of a clinically suspicious lesion. Electronically Signed By: Debi butler/robert:08/07/2024 16:14:40 letter sent: Normal Exam ACR BI-RADS Category 1: Negative
== END ==
PROVIDERS: Family Provider Family Medicine; PCP Student in an Organized Health Care Education/Training Program; Referring Provider Student in an Organized Health Care Education/Training Program; Visit Provider Student in an Organized Health Care Education/Training Program
DX: Z12.31 Encounter for screening mammogram for malignant neoplasm of breast (principal); R92.333 Mammographic heterogeneous density, bilateral breasts
CPT/HCPCS: 77063; 77067

== ENCOUNTER → 2025-07-23 08:12 | Outpatient (CLI) | payer MEDICARE, SELFPAY ==
[2025-07-23 08:56] LABS: Hematocrit 42.8 % (36-46); Hemoglobin 14.7 g/dL (12.0-16.0); Mean Corpuscular HGB Conc 34.4 % (30-36); Mean Corpuscular Hemoglobin 30.1 PG (26-34); Mean Corpuscular Volume 87.4 fL (80-100); Platelet Count 464 X10^3/uL (150-400)
[2025-07-23 09:07] LABS: Alanine Aminotransferase 30 IU/L (<35); Albumin 4.2 g/dL (3.5-5.0); Albumin Globulin Ratio 1.5 (1.0-2.8); Alkaline Phosphatase 60 U/L (38-126); Blood Urea Nitrogen 16 mg/dL (7-17); Calcium 9.2 mg/dL (8.4-10.2); Carbon Dioxide 27 mmol/L (22-32); Chloride 103 mmol/L (98-107); Cholesterol 164 mg/dL (140-199); Estimated Glomerular Filt Rate > 60 mL/min (>60); Globulin 2.8 g/dL (1.7-4.1); Glucose 98 mg/dL (70-99); HDL Cholesterol 59 mg/dL (40-60); HEMOLYSIS 27 (0-50); Potassium 4.8 mmol/L (3.4-5.1); Sodium 138 mmol/L (137-145); Total Protein 7.0 g/dL (6.3-8.2); Triglycerides 81 mg/dL (35-150)
== END ==
PROVIDERS: PCP Student in an Organized Health Care Education/Training Program; Referring Provider Student in an Organized Health Care Education/Training Program; Visit Provider Student in an Organized Health Care Education/Training Program
DX: E78.2 Mixed hyperlipidemia (principal); Z12.11 Encounter for screening for malignant neoplasm of colon
CPT/HCPCS: 36415; 80053; 80061; 82274; 83615; 85027

== ENCOUNTER → 2025-08-21 09:37 | Outpatient (CLI) | payer MEDICARE, SELFPAY ==
--- NOTE | 2025-08-21 09:38 | DI.CT.S_ITS ---
PROCEDURE: CT LUNG LOW DOSE SCREENING INDICATIONS: Nicotine dependance TECHNIQUE: Noncontrast 2.0-2.5 mm thick sections acquired from the pulmonary apices to the posterior costophrenic angles. 7 mm thick axial MIP, and 5 mm coronal and sagittal reformats were then acquired. For radiation dose reduction, the following was used: automated exposure control, adjustment of mA and/or kV according to patient size. COMPARISON: [facility], CT, CT CHEST ABD PEL W CON, 06/15/2023, 9:00. FINDINGS: Image quality: Diagnostic. Lower Neck: No enlarged lymph nodes. Thyroid: No thyroid nodules which require sonographic follow up, per consensus guidelines. Axillae: No enlarged lymph nodes. Chest Wall: Unremarkable. Bones: Diffuse osseous demineralization. No acute compression deformity. Lungs and Pleura: No pneumothorax or pleural effusions. Diffuse small centrilobular ground-glass opacities throughout both lungs. Stable size of the 10 x 7 mm subpleural pulmonary nodule in the posterior basilar segment of the right lower lobe (3/175), previously 9 x 6 mm. Heart: Heart size is normal. No pericardial effusion. Calcifications of the aortic valve. Thoracic Vessels: The aorta and pulmonary arteries demonstrate normal size. Mediastinum and Evelyne: No enlarged lymph nodes. Esophagus: No wall thickening. No hiatal hernia. Upper Abdomen: Visualized upper abdomen solid organs and bowel loops appear normal. IMPRESSION: Stable size of a 10 mm pulmonary nodule dating back to June 2023. Redemonstrated diffuse centrilobular ground-glass nodules throughout both lungs with small areas of cystic change (series 3, image 171). These findings are concerning for underlying interstitial lung disease, such as RB-ILD. Recommend correlation with pulmonary function test if not recently performed. If pulmonary function tests are abnormal, consider pulmonology referral. LUNG-RADS 2; recommend follow-up annual screening in 12 months Clinically Significant Non-pulmonary Findings: None. REFERENCE TEXT DELETE FROM FINAL REPORT ACR Lung-RADS v 1.0: 12/30/2013 release date. Lung-RADS 0: Prior chest CT needed for comparison. Part of all of lungs cannot be evaluated. Lung-RADS 1: No nodules or definitely benign nodules, continue annual screening in 12 months. * Nodules with specific calcifications: complete, central, popcorn, concentric rigns and fat containing nodules. Lung-RADS 2: Very low likelihood of becoming clinically active CA due to size or lack of growth, continue annual screening in 12 months. * Solid nodules: < 6 mm or new < 4 mm. * Part solid nodules: < 6 mm total diameter on baseline. * Non-solid or ground-glass nodules: < 20 mm OR 20 mm or more (unchanged or slowly growing). * Category 3 and 4 nodules unchanged for 3 months or more. Lung-RADS 3: Probably benign; recommend [address] * Solid nodules: 6 to <8 mm at baseline OR new 4 to <6 mm nodule. * Part solid nodules: 6 mm or more with solid component of < 6 mm OR new < 6 mm lesion. * Non-solid or ground-glass nodules: 20 mm or more on baseline, or new. Lung-RADS 4A: Suspicious; recommend 3-month followup CT, or PET-CT when there is a solid component of 8 mm or more. * Solid nodules: 8 to <15 mm at baseline, OR growing < 8 mm, OR new 6 to <8 mm. * Part-solid nodules: 6 mm ore more with solid component 6 to < 8 mm, OR with new/growing < 4 mm solid component. * Endobronchial nodule. Lung-RADS 4B: Suspicious; recommend chest CT with or without contrast, PET-CT and/or biopsy. PET-CT may be used if there is a solid component of 8 mm or more. * Solid nodules: 15 mm or more, OR new/growing 8 mm or more. * Part-solid nodules: solid component of 8 mm or more, OR new/growing solid component of 4 mm or more. Lung-RADS 4X: Category 3-4 nodules with additional features or findings that increase the suspicion for malignancy. Treat the same as 4B. * Examples: spiculated margins, ground-glass nodule doubling in size in 1 year, enlarged lymph nodes. S modifier: Clinically significant or potentially clinically significant findings (not lung CA). C modifier: Patients with prior dx of lung CA who return to screening. Growth: defined as size increase of > 1.5 mm. Dictated by: Tremayne Campo M.D. on 08/21/2025 at 13:53 Approved by: Tremayne Campo M.D. on 08/21/2025 at 14:01
--- NOTE | 2025-08-21 09:38 | DI.RAD.S_ITS ---
PROCEDURE: XR DEXA AXIAL SKELETON INDICATIONS: Osteopenia after menopause COMPARISON: [facility], , XR DEXA AXIAL SKELETON, 11/23/2023, 15:30. [facility], CR, XR DEXA AXIAL SKELETON, 07/05/2022, 15:06. FINDINGS: Lumbar Spine: Bone mineral density 0.897 g/cm2, T score -1.9, prior T-score of -1.9. Left Femoral Neck: Bone mineral density 0.564 g/cm2, T score -2.6. Left Hip: Bone mineral density 0.667- g/cm2, T score -2.3, prior T-score of -1.9. Fracture Risk Calculation (when applicable): 10-year fracture risk of a major osteoporotic fracture 16 percent and of a hip fracture 6.6 percent. (T score greater or equal to -1.0 to: NORMAL) (T score from -1.1 to -2.4: OSTEOPENIA) (T score less than or equal to -2.5: OSTEOPOROSIS) IMPRESSION: Osteopenia with high fracture risk. Statistical comparison cannot be made to the prior exam due to differences in technique, however the prior T-scores are reported Follow-up guidelines as follows: Osteoporosis: Consider a repeat DEXA and Vertebral Fracture Assessment (VFA) exam in 2 years or sooner if medically necessary, to reassess this patient's status. Osteopenia: Consider a repeat DEXA in 2-3 years to reassess this patient's status, or if there is a new clinical indication. Normal: Consider a repeat DEXA in 5 years or sooner, or if there is a new clinical indication. All treatment decisions require clinical judgment and consideration of individual patient factors, including patient preferences, comorbidities, previous drug use, risk factors not captured in the FRAX model (e.g., frailty, falls, vitamin D deficiency, increased bone turnover, interval significant decline in bone density ) and possible under- or over-estimation of fracture risk by FRAX. In addition, the NOF Guide recommends that FDA-approved medical therapies be considered in postmenopausal women and men age >= 50 years with a: * Hip or vertebral (clinical or morphometric) fracture * T-score of <=-2.5 at the spine or hip * Ten-year fracture probability by FRAX of >= 3% for hip fracture or >=20% for major osteoporotic fracture. Dictated by: Tremayne Campo M.D. on 08/21/2025 at 14:11 Approved by: Tremayne Campo M.D. on 08/21/2025 at 14:13
== END ==
PROVIDERS: PCP Student in an Organized Health Care Education/Training Program; Referring Provider Student in an Organized Health Care Education/Training Program; Visit Provider Student in an Organized Health Care Education/Training Program
DX: Z12.2 Encounter for screening for malignant neoplasm of respiratory organs (principal); F17.210 Nicotine dependence, cigarettes, uncomplicated; R91.8 Other nonspecific abnormal finding of lung field; M85.89 Other specified disorders of bone density and structure, multiple sites; Z78.0 Asymptomatic menopausal state
CPT/HCPCS: 71271; 77080